=== PATIENT | female | born 1955 | race Caucasian/White ===

== ENCOUNTER 2016-08-23 15:39 | Emergency (ER) | payer MEDICARE ==
[2016-08-23] MEDS ORDERED: NS 0.9% 1000 ML* 1,000 ML IV ONE (15:58)
--- NOTE | 2016-08-23 16:30 | RAD ---
HISTORY: Seizure COMPARISONS: February 24, 2016 TECHNIQUE: Multiple contiguous axial CT scans were obtained of the head without intravenous contrast. FINDINGS: HEMORRHAGE/INFARCT: There is no hemorrhage or acute infarct. MASSES/SHIFT: There is no mass or shift. EXTRA-AXIAL SPACES: There are no extra-axial fluid collections. SULCI AND VENTRICLES: The sulci and ventricles are normal in size and position for the patient's stated age. CEREBRUM: Again noted is asymmetric volume loss of the right cerebral hemisphere with multiple areas of gyriform calcification. These are stable from the previous examination. BRAINSTEM: There are no focal parenchymal abnormalities. CEREBELLUM: There are no focal parenchymal abnormalities. VESSELS: The vessels are grossly normal. PARANASAL SINUSES: The paranasal sinuses are clear. ORBITS: The orbits are unremarkable. BONES AND SOFT TISSUE: No bone or soft tissue abnormalities are noted. OTHER: None IMPRESSION: NO ACUTE INTRACRANIAL PATHOLOGY. 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
[2016-08-23 17:24] LABS: Hematocrit 40 % (35-47); Hemoglobin 13.3 g/dl (12.0-16.0); Mean Corpuscular HGB Conc 33 g/dl (31-36); Mean Corpuscular Hemoglobin 33 pg (27-31); Mean Corpuscular Volume 99 fL (80-97); Mean Platelet Volume 8 um3 (7.4-10.4); Red Blood Count 4.06 10^6/ul (4.0-5.4); Red Cell Distribution Width 16 % (10.5-15); White Blood Count 4.2 10^3/ul (3.5-10.8)
--- NOTE | 2016-08-23 17:31 | RAD ---
HISTORY: Seizure COMPARISONS: August 31, 2015 VIEWS: 2: Frontal dual-energy and lateral views of the chest. FINDINGS: CARDIOMEDIASTINAL SILHOUETTE: The cardiomediastinal silhouette is normal. WESLEY: The wesley are normal. PLEURA: There is eventration of the right hemidiaphragm. LUNG PARENCHYMA: The lungs are clear. ABDOMEN: The upper abdomen is clear. There is no subphrenic gas. BONES AND SOFT TISSUES: No bone or soft tissue abnormalities are noted. OTHER: There is a right-sided chest port from an internal jugular approach with tip overlying the superior vena cava. IMPRESSION: NO ACTIVE CARDIOPULMONARY DISEASE.
[2016-08-23] MEDS ORDERED: LORazepam INJ* 2 MG/ML 1 ML VIAL IV PUSH ONE (17:36)
[2016-08-23 17:38] LABS: ALT 13 U/L (7-52); AST 18 U/L (13-39); Albumin 4.2 g/dL (3.2-5.2); Alkaline Phosphatase 149 U/L (34-104); Anion Gap 7 mmol/L (2-11); BUN/Creatinine Ratio 25.8 (8-20); Blood Urea Nitrogen 17 mg/dL (6-24); CO2 Carbon Dioxide 29 mmol/L (22-32); Calcium 9.3 mg/dL (8.6-10.3); Chloride 99 mmol/L (101-111); EGFR African American 117.1 (>60); Globulin 3.2 g/dL (2-4); Glucose 96 mg/dL (70-100); Magnesium 1.9 mg/dL (1.9-2.7); Potassium 4.3 mmol/L (3.5-5.0); Sodium 135 mmol/L (133-145); Total Protein 7.4 g/dL (6.4-8.9)
[2016-08-23] MEDS ORDERED: LORazepam INJ* 2 MG/ML 1 ML VIAL ONE (17:39)
[2016-08-23 18:09] LABS: Alcohol < 10 mg/dL (<10)
[2016-08-23 18:10] LABS: Urine Bacteria Absent (Absent); Urine Bilirubin Negative (Negative); Urine Glucose Negative (Negative); Urine Nitrite Negative (Negative)
[2016-08-23 18:19] LABS: Benzodiazepine Urine Screen None Detected (None Detect)
[2016-08-23 18:20] LABS: TSH (Thyroid Stimulating Horm) 4.53 mcIU/mL (0.34-5.60)
--- NOTE | 2016-08-23 18:55 | ED ---
Smitha Morgan Janilya, scribed for Mj Lozada MD on 08/23/16 at 1559 . Neurological HPI - HPI Summary HPI Summary: A 60 y/o female was BIBA to [facility] presenting w/ a sudden onset of a head injury after an episode of seizures that occurred today at [facility]. Pt was seizing when she fell backwards and hit her head, according to EMS. Per EMS, her entire left side went weak, which is baseline normal for pt after seizures. The seizure was witnessed by pt's friend, who states that the pt briefly lost consciousness. Pt is fully conscious at the ED now. There is significant PMHx of seizures. Pt takes Phenobarbital 150 mg once a day at night. - History of Current Complaint Chief Complaint: EDSeizure Stated Complaint: SEIZURE Hx Obtained From: Patient Onset/Duration: Sudden Onset, Started hours ago, Resolved Timing: Constant Onset Severity: Moderate Current Severity: Moderate Seizure Severity: Moderate Syncope Context: Witnessed, Loss of Consciousness: Yes Aggravating: Nothing Alleviating: Nothing - Allergy/Home Medications Allergies/Adverse Reactions: Allergies Allergy/AdvReac Type Severity Reaction Status Date / Time No Known Allergies Allergy Verified 01/31/16 15:09 PMH/Surg Hx/FS Hx/Imm Hx Previously Healthy: No Endocrine/Hematology History: Reports: Hx Anticoagulant Therapy, Hx Anemia, Other Endocrine/Hematological Disorders - facial port wine staining Denies: Hx Diabetes, Hx Thyroid Disease Cardiovascular History: Reports: Hx Deep Vein Thrombosis, Hx Syncope Denies: Hx Hypertension, Hx Pacemaker/ICD Respiratory History: Reports: Hx Pulmonary Embolism Denies: Hx Asthma, Hx Chronic Obstructive Pulmonary Disease (COPD) History: Denies: Hx Dialysis, Hx Renal Disease Musculoskeletal History: Reports: Hx Back Problems Sensory History: Reports: Hx Contacts or Glasses, Hx Glaucoma, Hx Vision Problem , Hx Hearing Problem Denies: Hx Hearing Aid Opthamlomology History: Reports: Hx Contacts or Glasses, Hx Glaucoma, Hx Vision Problem Neurological History: Reports: Hx Seizures, Other Neuro Impairments/Disorders - Sturge-Kern disease Denies: Hx Dementia Psychiatric History: Reports: Hx Panic Disorder - UPSETS EASILY Denies: Hx Substance Abuse - Cancer History Cancer Type, Location and Year: uterine. RADHA2010 Hx Chemotherapy: Yes - UTERINE CANCER Hx Radiation Therapy: Yes - UTERINE CANCER - Surgical History Surgery Procedure, Year, and Place: TOTAL HYSTERECTOMY. Right arm. Left knee. ARNOLD FILTER- 1.5T ONLY ( FOR MRI) Hx Anesthesia Reactions: No Infectious Disease History: No Infectious Disease History: Denies: Hx Clostridium Difficile, Hx Hepatitis, Hx Human Immunodeficiency Virus (HIV), Traveled Outside the [place] in Last 30 Days - Family History Known Family History: Negative: Cardiac Disease, Hypertension, Diabetes - Social History Alcohol Use: None Hx Substance Use: No Substance Use Type: Reports: None Hx Tobacco Use: No Smoking Status (MU): Never Smoked Tobacco Review of Systems Positive: Other - head laceration Neurological: Other - episode of seizing Positive: Weakness - left-sided All Other Systems Reviewed And Are Negative: Yes Physical Exam - Summary Physical Exam Summary: VITAL SIGNS: Reviewed. GENERAL: Patient is a well developed and nourished female who is lying comfortable in the stretcher. Patient is not in any acute respiratory distress. HEAD AND FACE: No signs of trauma. No ecchymosis, hematomas or skull depressions. No sinus tenderness. EYES: PERRLA, EOMI x 2, No injected conjunctiva, no nystagmus. No photophobia. EARS: Hearing grossly intact. Ear canals and tympanic membranes are within normal limits. MOUTH: Oropharynx within normal limits. NECK: Supple, trachea is midline, no adenopathy, no JVD, no carotid bruit, no c- spine tenderness, neck with full ROM. No meningeal signs, no Kernig's or brudzinskis signs. CHEST: Symmetric, no tenderness at palpation LUNGS: Clear to auscultation bilaterally. No wheezing or crackles. CVS: Regular rate and rhythm, S1 and S2 present, no murmurs or gallops appreciated. ABDOMEN: Soft, non-tender. No signs of distention. No rebound no guarding, and no masses palpated. Bowel sounds are normal. EXTREMITIES: FROM in all major joints, no edema, no cyanosis or clubbing. NEURO: Alert and oriented x 3. No acute neurological deficits. Speech is normal and follows commands. SKIN: Dry and warm > Port wine nevus in the rihgt side of the head and face. Triage Information Reviewed: Yes Vital Signs On Initial Exam: Initial Vitals Temp Pulse Resp BP Pulse Ox 98.9 F 91 18 141/70 97 08/23/16 15:40 08/23/16 15:40 08/23/16 15:40 08/23/16 15:40 08/23/16 15:40 Vital Signs Reviewed: Yes - Jeff Coma Scale Coma Scale Total: 15 Diagnostics - Vital Signs Vital Signs Temp Pulse Resp BP Pulse Ox 08/23/16 15:40 98.9 F 91 18 141/70 97 - Laboratory Lab Results: Lab Results 08/23/16 08/23/16 08/23/16 Range/Units 17:12 17:12 17:12 WBC 4.2 (3.5-10.8) 10^3/ul RBC 4.06 (4.0-5.4) 10^6/ul Hgb 13.3 (12.0-16.0) g/dl Hct 40 (35-47) % MCV 99 H (80-97) fL MCH 33 H (27-31) pg MCHC 33 (31-36) g/dl RDW 16 H (10.5-15) % Plt Count 206 (150-450) 10^3/ul MPV 8 (7.4-10.4) um3 Neut % (Auto) 70.8 (38-83) % Lymph % (Auto) 15.6 L (25-47) % Carver % (Auto) 12.4 H (1-9) % Eos % (Auto) 0.6 (0-6) % Baso % (Auto) 0.6 (0-2) % Absolute Neuts (auto) 3.0 (1.5-7.7) 10^3/ul Absolute Lymphs (auto) 0.7 L (1.0-4.8) 10^3/ul Absolute Monos (auto) 0.5 (0-0.8) 10^3/ul Absolute Eos (auto) 0 (0-0.6) 10^3/ul Absolute Basos (auto) 0 (0-0.2) 10^3/ul Absolute Nucleated RBC 0 10^3/ul Nucleated RBC % 0 INR (Anticoag Therapy) 1.93 H (0.89-1.11) Sodium 135 (133-145) mmol/L Potassium 4.3 (3.5-5.0) mmol/L Chloride 99 L (101-111) mmol/L Carbon Dioxide 29 (22-32) mmol/L Anion Gap 7 (2-11) mmol/L BUN 17 (6-24) mg/dL Creatinine 0.66 (0.51-0.95) mg/dL Est GFR ( Amer) 117.1 (>60) Est GFR (Non-Af Amer) 91.0 (>60) BUN/Creatinine Ratio 25.8 H (8-20) Glucose 96 (70-100) mg/dL Lactic Acid (0.5-2.0) mmol/L Calcium 9.3 (8.6-10.3) mg/dL Magnesium 1.9 (1.9-2.7) mg/dL Total Bilirubin 0.40 (0.2-1.0) mg/dL AST 18 (13-39) U/L ALT 13 (7-52) U/L Alkaline Phosphatase 149 H (34-104) U/L Total Protein 7.4 (6.4-8.9) g/dL Albumin 4.2 (3.2-5.2) g/dL Globulin 3.2 (2-4) g/dL Albumin/Globulin Ratio 1.3 (1-3) TSH 4.53 (0.34-5.60) mcIU/mL Urine Color Urine Appearance Urine pH (5-9) Ur Specific Screven (1.010-1.030) Urine Protein (Negative) Urine Ketones (Negative) Urine Blood (Negative) Urine Nitrate (Negative) Urine Bilirubin (Negative) Urine Urobilinogen (Negative) Ur Leukocyte Esterase (Negative) Urine WBC (Auto) (Absent) Urine RBC (Auto) (Absent) Ur Squamous Epith Cells (Absent) Urine Bacteria (Absent) Urine Glucose (Negative) Urine Opiates Screen (None Detect) Ur Barbiturates Screen (None Detect) Ur Phencyclidine Scrn (None Detect) Ur Amphetamines Screen (None Detect) Phenobarbital 29.3 (17-34) mcg/mL U Benzodiazepines Scrn (None Detect) Urine Cocaine Screen (None Detect) U Cannabinoids Screen (None Detect) Serum Alcohol < 10 (<10) mg/dL 08/23/16 08/23/16 08/23/16 Range/Units 17:12 17:45 17:45 WBC (3.5-10.8) 10^3/ul RBC (4.0-5.4) 10^6/ul Hgb (12.0-16.0) g/dl Hct (35-47) % MCV (80-97) fL MCH (27-31) pg MCHC (31-36) g/dl RDW (10.5-15) % Plt Count (150-450) 10^3/ul MPV (7.4-10.4) um3 Neut % (Auto) (38-83) % Lymph % (Auto) (25-47) % Carver % (Auto) (1-9) % Eos % (Auto) (0-6) % Baso % (Auto) (0-2) % Absolute Neuts (auto) (1.5-7.7) 10^3/ul Absolute Lymphs (auto) (1.0-4.8) 10^3/ul Absolute Monos (auto) (0-0.8) 10^3/ul Absolute Eos (auto) (0-0.6) 10^3/ul Absolute Basos (auto) (0-0.2) 10^3/ul Absolute Nucleated RBC 10^3/ul Nucleated RBC % INR (Anticoag Therapy) (0.89-1.11) Sodium (133-145) mmol/L Potassium (3.5-5.0) mmol/L Chloride (101-111) mmol/L Carbon Dioxide (22-32) mmol/L Anion Gap (2-11) mmol/L BUN (6-24) mg/dL Creatinine (0.51-0.95) mg/dL Est GFR ( Amer) (>60) Est GFR (Non-Af Amer) (>60) BUN/Creatinine Ratio (8-20) Glucose (70-100) mg/dL Lactic Acid 0.9 (0.5-2.0) mmol/L Calcium (8.6-10.3) mg/dL Magnesium (1.9-2.7) mg/dL Total Bilirubin (0.2-1.0) mg/dL AST (13-39) U/L ALT (7-52) U/L Alkaline Phosphatase (34-104) U/L Total Protein (6.4-8.9) g/dL Albumin (3.2-5.2) g/dL Globulin (2-4) g/dL Albumin/Globulin Ratio (1-3) TSH (0.34-5.60) mcIU/mL Urine Color Straw Urine Appearance Clear Urine pH 7.0 (5-9) Ur Specific Screven 1.008 L (1.010-1.030) Urine Protein Negative (Negative) Urine Ketones Negative (Negative) Urine Blood 1+ H (Negative) Urine Nitrate Negative (Negative) Urine Bilirubin Negative (Negative) Urine Urobilinogen Negative (Negative) Ur Leukocyte Esterase Trace H (Negative) Urine WBC (Auto) Trace(0-5/hpf) (Absent) Urine RBC (Auto) Trace(0-2/hpf) (Absent) Ur Squamous Epith Cells Present H (Absent) Urine Bacteria Absent (Absent) Urine Glucose Negative (Negative) Urine Opiates Screen None detected (None Detect) Ur Barbiturates Screen Presumptive positive H (None Detect) Ur Phencyclidine Scrn None detected (None Detect) Ur Amphetamines Screen None detected (None Detect) Phenobarbital (17-34) mcg/mL U Benzodiazepines Scrn None detected (None Detect) Urine Cocaine Screen None detected (None Detect) U Cannabinoids Screen None detected (None Detect) Serum Alcohol (<10) mg/dL Result Diagrams: 08/23/16 17:12 08/23/16 17:12 Lab Statement: Any lab studies that have been ordered have been reviewed, and results considered in the medical decision making process. - Radiology CXR Xray Interpretation: No Acute Changes - IMPRESSION: No active cardiopulmonary disease Radiology Interpretation Completed By: Radiologist - CT brain CT Interpretation: Positive (See Comments) - IMPRESSION: NO ACUTE INTRACRANIAL PATHOLOGY. 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 Pt was seizing when she fell backwards and hit her head, according to EMS. Per EMS, her entire left side went weak, which is baseline normal for pt after seizures. The seizure was witnessed by pt's friend, who states that the pt briefly lost consciousness. Pt is fully conscious at the ED now. There is significant PMHx of seizures. Pt takes Phenobarbital 150 mg once a day at night. brain CT IMPRESSION: NO ACUTE INTRACRANIAL PATHOLOGY. AGAIN NOTED IS ASYMMETRIC VOLUME LOSS OF THE RIGHT CEREBRAL HEMISPHERE WITH GYRIFORM. 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 EKG is NSR w/ 82 bpm. CXR shows no cardiopulmonary disease. At 1732: pt experienced a focal seizure. At this time, pt is in a post-ictal state. 1 mg of Adivan will be given. Blood work within normal limits, except for the following: MCV 99 H. MCH 33H. RDW 16 H. Lymph% 15.6 L. Carver% 12.4 H. Absolute Lymphs 0.7 L. chloride 99 L. BUN/creatinine ratio 25.8 H. alkaline phosphatase 149 H. Discussed pt care w/ Dr. Murrell (neuro). I was recommended to check up on phenobarbital levels. After 29.3 H levels, it was recommended to further observe the pt for the next 1-2 hours for seizures. If no more seizures, pt will be discharged home. Currently, pt is stable and resting comfortably in bed. Pt will be signed out to Dr. Meng for the next 1- 2 hours for observation. Pt will need to contact Dr. Murrell for further directions. - Diagnoses Provider Diagnoses: Seizure - Physician Notifications Discussed Care of Patient With: Dr. Murrell (neuro) at 1827: discussed pt care; recommended to assess phenobarbital levels to determine next steps in pt care. Dr. Murrell (neuro) at 1835: discussed phenobarbitla levels were 29.3; recommended further observation of pt for next 1-2 hours. If no more seizures, dx pt home. Discharge - Discharge Plan Condition: Stable Disposition: OTHER Discharge Disposition Comment: Signed out to Dr. Meng pending observation for seizures for next 1-2 hrs Referrals: Piter Thomas MD [Primary Care Provider] - The documentation as recorded by the Smitha smiley Janilya accurately reflects the service I personally performed and the decisions made by , Mj Lozada MD.
[2016-08-23 20:34] VITALS: BP 122/46
== END 2016-08-23 20:48 | disposition home or self-care (01) ==
LOC: ED 15:39
DX: S09.90XA Unspecified injury of head, initial encounter (principal); W19.XXXA Unspecified fall, initial encounter; Y92.512 Supermarket, store or market as the place of occurrence of the external cause; G40.909 Epilepsy, unspecified, not intractable, without status epilepticus; Z86.711 Personal history of pulmonary embolism; F41.0 Panic disorder [episodic paroxysmal anxiety]; Z85.42 Personal history of malignant neoplasm of other parts of uterus; Z92.21 Personal history of antineoplastic chemotherapy; Z79.01 Long term (current) use of anticoagulants; Z86.718 Personal history of other venous thrombosis and embolism
CPT/HCPCS: 36415; 70450; 71020; 80053; 80184; 80307; 80320; 81003; 81015; 83605; 83735; 84443; 85025; 85610; 87086; 93005; 96360; 96374; 99284; G0480; J2060

== ENCOUNTER 2018-02-25 19:04 | Observation (INO) | payer MEDICARE ==
[2018-02-25] MEDS ORDERED: NS 0.9% 1000 ML* 1,000 ML IV ONE (19:06)
--- NOTE | 2018-02-25 19:32 | RAD ---
EXAM: CT Head Without Intravenous Contrast EXAM DATE/TIME: 02/25/2018 7:13 PM CLINICAL HISTORY: 62 years old, female; Signs and symptoms; Altered mental status/memory loss; Additional info: Neurological changes/code perez, left facial droop TECHNIQUE: Axial computed tomography images of the head/brain without intravenous contrast. All CT scans at this facility use at least one of these dose optimization techniques: automated exposure control; mA and/or kV adjustment per patient size (includes targeted exams where dose is matched to clinical indication); or iterative reconstruction. 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 No edema. Perez-white differentiation is maintained. Ventricles: Normal. No ventriculomegaly. Bones/joints: Normal. No acute fracture. Sinuses: Normal as visualized. No acute sinusitis. Mastoid air cells: Normal as visualized. No mastoid effusion. Soft tissues: Normal. IMPRESSION: No acute intracranial abnormality. Chronic changes as described above. Aspect score of 10. To contact [facility] with a general question: Operations Center - [phone] For direct physician to physician contact: Physician Hotline - [phone] [facility] ([facility] Facility ID #[id number])
[2018-02-25 19:52] LABS: Urine Appearance Clear; Urine Blood 1+ (Negative); Urine Color Colorless; Urine Ketones Negative (Negative); Urine Protein Negative (Negative); Urine Red Blood Cell Absent (Absent); Urine Specific Gravity 1.002 (1.010-1.030); Urine Urobilinogen Negative (Negative); Urine White Blood Cell Absent (Absent)
[2018-02-25 20:09] LABS: ABS Basophils 0 10^3/ul (0-0.2); ABS Eosinophils 0.1 10^3/ul (0-0.6); ABS Lymphocytes 0.6 10^3/ul (1.0-4.8); ABS Monocytes 0.4 10^3/ul (0-0.8); ABS Neutrophils 1.7 10^3/ul (1.5-7.7); ABS Nucleated RBC 0 10^3/ul; Eosinophil % 2.1 % (0-6); Hematocrit 38 % (35-47); Hemoglobin 12.7 g/dl (12.0-16.0); Lymphocyte % 21.7 % (25-47); Mean Corpuscular HGB Conc 34 g/dl (31-36); Mean Corpuscular Hemoglobin 33 pg (27-31); Mean Corpuscular Volume 98 fL (80-97); Mean Platelet Volume 7.9 um3 (7.4-10.4); Nucleated Red Blood Cells % 0.2; Platelet Count 255 10^3/ul (150-450); Red Blood Count 3.84 10^6/ul (4.00-5.40); Red Cell Distribution Width 16 % (10.5-15); White Blood Count 2.8 10^3/ul (3.5-10.8)
--- NOTE | 2018-02-25 20:27 | ED ---
Neurological HPI - HPI Summary HPI Summary: This patient is a 62 year old F presenting to [facility] with a chief complaint of gradual onset left upper and lower extremity weakness since 1729. PMHx Sturge -Hughes syndrome. PMHx left hemiparesis, but typically only arm and in context of a seizure. Today she is experiencing L hemiparesis including leg, worse sx than ever previously experienced. Rx on Coumadin. PMHx sz inducing similar sx, but she states that she felt it coming on then, and had no warning for todays sx. She denies SUTHERLAND. Earlene white called at 1902. - History of Current Complaint Chief Complaint: EDNeurologicalDeficit Stated Complaint: LT SIDE WEAKNESS Time Seen by Provider: 02/25/18 19:06 Hx Obtained From: Patient Onset/Duration: Gradual Onset, Started hours ago, Still Present Timing: Constant Onset Severity: Moderate Current Severity: Mild Neurological Deficit Location: LUE, LLE Pain Intensity: 0 Pain Scale Used: 0-10 Numeric Character: Numbness/Tingling - numbness, Motor Weakness - LUE and LLE Aggravating: Nothing Alleviating: Nothing Associated Signs and Symptoms: Positive: Weakness - L sided motor, Numbness. Negative: Headache, Fever - Allergy/Home Medications Allergies/Adverse Reactions: Allergies Allergy/AdvReac Type Severity Reaction Status Date / Time No Known Allergies Allergy Verified 01/31/16 15:09 PMH/Surg Hx/FS Hx/Imm Hx Endocrine/Hematology History: Reports: Hx Anticoagulant Therapy, Hx Anemia, Other Endocrine/Hematological Disorders - facial port wine staining Denies: Hx Diabetes, Hx Thyroid Disease Cardiovascular History: Reports: Hx Deep Vein Thrombosis, Hx Syncope Denies: Hx Hypertension, Hx Pacemaker/ICD Respiratory History: Reports: Hx Pulmonary Embolism, Other Respiratory Problems/ Disorders - 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, hx uterine cancer Denies: Hx Asthma, Hx Chronic Obstructive Pulmonary Disease (COPD) History: Denies: Hx Dialysis, Hx Renal Disease Musculoskeletal History: Reports: Hx Back Problems Sensory History: Reports: Hx Contacts or Glasses, Hx Glaucoma, Hx Vision Problem , Hx Hearing Problem Denies: Hx Hearing Aid Opthamlomology History: Reports: Hx Contacts or Glasses, Hx Glaucoma, Hx Vision Problem Neurological History: Reports: Hx Seizures, Other Neuro Impairments/Disorders - Sturge-Hughes disease Denies: Hx Dementia Psychiatric History: Reports: Hx Panic Disorder - UPSETS EASILY Denies: Hx Substance Abuse - Cancer History Cancer Type, Location and Year: uterine. RADHA 2010 Hx Chemotherapy: Yes - UTERINE CANCER Hx Radiation Therapy: Yes - UTERINE CANCER - Surgical History Surgery Procedure, Year, and Place: TOTAL HYSTERECTOMY. Right arm. Left knee. ARNOLD FILTER- 1.5T ONLY ( FOR MRI) Hx Anesthesia Reactions: No Infectious Disease History: No Infectious Disease History: Denies: Hx Clostridium Difficile, Hx Hepatitis, Hx Human Immunodeficiency Virus (HIV), Traveled Outside the [place] in Last 30 Days - Family History Known Family History: Negative: Cardiac Disease, Hypertension, Diabetes - Social History Alcohol Use: None Hx Substance Use: No Substance Use Type: Reports: None Hx Tobacco Use: No Smoking Status (MU): Never Smoked Tobacco Review of Systems Negative: Fever Positive: no symptoms reported Positive: Decreased ROM - LUE, LLE Positive: Weakness - LLE, LUE, Numbness - LLE, LUE. Negative: Headache All Other Systems Reviewed And Are Negative: Yes Physical Exam - Summary Physical Exam Summary: Appearance: Well-appearing, Well-nourished, lying in bed comfortably Skin: Warm, dry. Large port wine stains on right side of face and about the mouth Eyes: sclera anicteric, no conjunctival pallor ENT: mucous membranes moist, pharynx appears normal Neck: Supple, nontender Respiratory: Clear to auscultation, no signs of respiratory distress Cardiovascular: Normal S1, S2. No murmurs. Normal distal pulses in tibial and radial bilaterally. Abdomen: Soft, nontender, normal active bowel sounds present Musculoskeletal: Normal, Strength/ROM Intact Neurological: NIH 5: weakness in LUE, LLE, subjective numbness. Cranial nerves appear grossly intact, no facial weakness. No field cut. No ataxia. DTRs nl at knees Psychiatric: affect is normal, does not appear anxious or depressed Triage Information Reviewed: Yes Vital Signs On Initial Exam: Initial Vitals Temp Pulse Resp BP Pulse Ox 98 F 79 19 135/92 100 02/25/18 19:20 02/25/18 19:20 02/25/18 19:20 02/25/18 19:20 02/25/18 19:20 Vital Signs Reviewed: Yes - [place] Coma Scale Best Eye Response: 4 - Spontaneous Best Motor Response: 6 - Obeys Commands Best Verbal Response: 5 - Oriented Coma Scale Total: 15 Diagnostics - Vital Signs Vital Signs Temp Pulse Resp BP Pulse Ox 02/25/18 20:21 98 02/25/18 19:22 80 25 135/92 100 02/25/18 19:20 98 F 79 19 135/92 99 - Laboratory Lab Results: Lab Results 02/25/18 02/25/18 Range/Units 19:36 20:01 WBC 2.8 L (3.5-10.8) 10^3/ul RBC 3.84 L (4.00-5.40) 10^6/ul Hgb 12.7 (12.0-16.0) g/dl Hct 38 (35-47) % MCV 98 H (80-97) fL MCH 33 H (27-31) pg MCHC 34 (31-36) g/dl RDW 16 H (10.5-15) % Plt Count 255 (150-450) 10^3/ul MPV 7.9 (7.4-10.4) um3 Neut % (Auto) 61.3 (38-83) % Lymph % (Auto) 21.7 L (25-47) % Harnett % (Auto) 13.6 H (0-7) % Eos % (Auto) 2.1 (0-6) % Baso % (Auto) 1.3 (0-2) % Absolute Neuts (auto) 1.7 (1.5-7.7) 10^3/ul Absolute Lymphs (auto) 0.6 L (1.0-4.8) 10^3/ul Absolute Monos (auto) 0.4 (0-0.8) 10^3/ul Absolute Eos (auto) 0.1 (0-0.6) 10^3/ul Absolute Basos (auto) 0 (0-0.2) 10^3/ul Absolute Nucleated RBC 0 10^3/ul Nucleated RBC % 0.2 Urine Color Colorless Urine Appearance Clear Urine pH 7.0 (5-9) Ur Specific [place] 1.002 L (1.010-1.030) Urine Protein Negative (Negative) Urine Ketones Negative (Negative) Urine Blood 1+ A (Negative) Urine Nitrate Negative (Negative) Urine Bilirubin Negative (Negative) Urine Urobilinogen Negative (Negative) Ur Leukocyte Esterase Negative (Negative) Urine WBC (Auto) Absent (Absent) Urine RBC (Auto) Absent (Absent) Ur Squamous Epith Cells Present A (Absent) Urine Bacteria Absent (Absent) Urine Glucose Negative (Negative) Result Diagrams: 02/25/18 20:01 02/25/18 20:01 Lab Statement: Any lab studies that have been ordered have been reviewed, and results considered in the medical decision making process. - Radiology CXR Xray Interpretation: No Acute Changes Radiology Interpretation Completed By: ED Physician - No acute disease. Pending official imaging report. - CT Brain CT Interpretation: No Acute Changes CT Interpretation Completed By: Radiologist - This CT does not show acute ischemia. Dr. Adams has reviewed this report. - EKG 2002 Cardiac Rate: NL - 80 EKG Rhythm: Sinus Rhythm ST Segment: Normal Ectopy: None EKG Interpretation: No STEMI. nl EKG. NIH Scale - NIH Scale Level of Consciousness: Alert/Keenly Responsive Ask Patient the Month and His/Her Age: Both Correct Ask Pt to Open/Close Eyes and Public Services Assistant/Release Non-Paretic Hand: Both Correctly Best Gaze (Only Horizontal Eye Movement): Normal Visual Field Testing: No Visual Loss Facial Paresis-Pt to Smile & Close Eyes or Grimace Symmetry: Normal/Symmetrical Motor Function - Right Arm: No Drift-Holds 10 Seconds Motor Function - Left Arm: Effort Against [place] Motor Function - Right Leg: No Drift-Holds 10 Seconds Motor Function - Left Leg: Effort Against [place] Limb Ataxia-Must be out of Proportion to Weakness Present: Absent Sensory (Use Pinprick to Test Arms/Legs/Trunk/Face): Pinprick Less on Affected Best Language (Describe Picture, Name Items): No Aphasia Dysarthria (Read Several Words): Normal Extinction and Inattention: No Abnormality Total Score: 5 Course/Dx - Course Course Of Treatment: A 62-year-old F presents to the ED with a CC of FND since 1729. (+) LUE, LLE hemiparesis and numbness. (-) Right sided weakness, numbness , SUTHERLAND. Sturge-Hughes syndrome, PMHx sz causing similar sx, but never LE, and she "had a warning" when those sx were about to onset, and none today. A CT brain was (-). A CTA head/neck reveals __. A CXR was (-). An EKG reveals NSR at 80 BPM with no STEMI. In the ED course, pt was given nl saline. Pt labs show low WBC, low RBC, high MCV, high MCH, high RDW, low lymph %, high mono %, low abs lymphs, low urine specific gravity, urine blood, urine epithelial cells, high INR, high APTT, high BUN/creat ratio, high glucose, and high alkaline phosphotase. - Diagnoses Provider Diagnoses: Left hemiparesis - Physician Notifications Discussed Care Of Patient With: Aime Franklin Time Discussed With Above Provider: 19:50 Instructed by Provider To: Other - No TPA due to strong PMHx of Sturge-Hughes. Recommends CTA to r/o large vessel occlusion. - Critical Care Time Critical Care Time: 30-74 min - Acute neurological syndrome suggestive of stroke , consultation with neurologist re: TPA or other re perfusion strategies, complicated patient with precedin neurologic co morbidity Discharge - Sign-Out/Discharge Documenting (check all that apply): Patient Departure - discharge - Discharge Plan Condition: Stable Disposition: ADMITTED TO [facility] - Billing Disposition and Condition Condition: STABLE Disposition: Admitted to [facility] - Attestation Statements Document Initiated by Scribe: Yes Documenting Scribe: Ta Joy Provider For Whom Scribe is Documenting (Include Credential): Dr. Javier Adams MD Scribe Attestation: Eddie, Ta Joy scribed for Dr. Javier Adams MD on 02/26/18 at 1253. Scribe Documentation Reviewed: Yes Provider Attestation: The documentation as recorded by the Ta smiley accurately reflects the service I personally performed and the decisions made by me, Dr. Javier Adams MD Consult Consult: [id number] Dr. Hester: accepts admission.
[2018-02-25 20:38] LABS: EGFR Non-African American 85.9 (>60)
[2018-02-25 20:57] LABS: INR 3.5 (0.77-1.02)
[2018-02-25] MEDS ORDERED: Iohexol 350* (CONTRAST) 500 ML MDV IV ONE (21:04)
--- NOTE | 2018-02-25 22:20 | ED ---
Progress - Progress Note Progress Note: This pt was signed out by Dr. Adams at shift change, pending disposition, awaiting CTA head/neck and possible admission if CTA is negative. CTA Head, as read by radiologist IMPRESSION: 1. No acute occlusion. 2. Anatomical variants as described above. 3. Dilatation measuring 3 mm at the bifurcation of M1 segment of right middle cerebral artery which may represent a small aneurysm versus infundibulum of a vessel. CTA Neck, as read by radiologist IMPRESSION: 1. No stenosis of the neck vessels. 2. The right vertebral artery is small in caliber but remains patent and likely anatomical variant. 3. Other anatomical variants as described above. 4. Right periorbital soft tissue edema/soft tissue thickening which may be a sequel of Sturge-Hughes. Clinical correlation. Dr. Napier has reviewed these reports. Course/Dx - Course Course Of Treatment: Pt was signed out by Dr. Adams pending CTA Head and Neck. Head CTA shows 1. No acute occlusion. 2. Anatomical variants as described above. 3. Dilatation measuring 3 mm at the bifurcation of M1 segment of right middle cerebral artery which may represent a small aneurysm versus infundibulum of a vessel. Neck CTA shows 1. No stenosis of the neck vessels. 2. The right vertebral artery is small in caliber but remains patent and likely anatomical variant. 3. Other anatomical variants as described above. 4. Right periorbital soft tissue edema/soft tissue thickening which may be a sequel of Sturge-Hughes. Clinical correlation. Per Dr. Adams since CTA head and neck are negative pt will be admitted to Dr. Hester, hospitalist. - Diagnoses Provider Diagnoses: Left hemiparesis Discharge - Sign-Out/Discharge Documenting (check all that apply): Patient Departure - Admit to [facility], Receiving Sign-Out Receiving patient FROM: Javier Adams - Discharge Plan Condition: Stable Disposition: ADMITTED TO [facility] - Attestation Statements Document Initiated by Scribe: Yes Documenting Scribe: Alma Betts Provider For Whom Jaun is Documenting (Include Credential): Rosy Napier MD Scribe Attestation: Alma Morgan, scribed for Rosy Napier MD on 02/26/18 at 0225.
--- NOTE | 2018-02-26 01:07 | RAD ---
EXAM: CT Angiography Head With Intravenous Contrast EXAM DATE/TIME: 02/25/2018 11:43 PM CLINICAL HISTORY: 62 years old, female; Signs and symptoms; Paralysis, transient of limb; Additional info: Left hemiparesis, ? lvo TECHNIQUE: Axial computed tomographic angiography images of the head with intravenous contrast using CT angiography protocol. All CT scans at this facility use at least one of these dose optimization techniques: automated exposure control; mA and/or kV adjustment per patient size (includes targeted exams where dose is matched to clinical indication); or iterative reconstruction. MIP reconstructed images were created and reviewed. CONTRAST: 80 ml of OMNIPAQUE 350 administered intravenously. COMPARISON: BRAIN WO CT BRAIN WO 02/25/2018 7:12 PM FINDINGS: Right internal carotid artery: Unremarkable. Intracranial segment is patent with no significant stenosis. No aneurysm. Right anterior cerebral artery: Atrophy of the right cerebral hemisphere with prominent gyral calcifications consistent Sturge-Hughes syndrome. The right cerebral artery has origin and small in caliber. Right middle cerebral artery: 3 mm dilatation at the bifurcation of right M1 segment of middle cerebral artery which may represent a small aneurysm versus infundibulum of a vessel. Right posterior cerebral artery: Unremarkable. No occlusion or significant stenosis. No aneurysm. Right vertebral artery: Unremarkable. No occlusion or significant stenosis. No aneurysm. Left internal carotid artery: Unremarkable. Intracranial segment is patent with no significant stenosis. No aneurysm. Left anterior cerebral artery: Unremarkable. No occlusion or significant stenosis. No aneurysm. Left middle cerebral artery: Unremarkable. No occlusion or significant stenosis. No aneurysm. Left posterior cerebral artery: origin of the left posterior cerebral artery. Left vertebral artery: Unremarkable. No occlusion or significant stenosis. No aneurysm. Basilar artery: Unremarkable. No occlusion or significant stenosis. No aneurysm. IMPRESSION: 1. No acute occlusion. 2. Anatomical variants as described above. 3. Dilatation measuring 3 mm at the bifurcation of M1 segment of right middle cerebral artery which may represent a small aneurysm versus infundibulum of a vessel. EXAM: CT Angiography Neck With Intravenous Contrast EXAM DATE/TIME: 02/25/2018 11:43 PM CLINICAL HISTORY: 62 years old, female; Signs and symptoms; Paralysis, transient of limb; Additional info: Left hemiparesis, ? lvo TECHNIQUE: Axial computed tomographic angiography images of the neck with intravenous contrast using CT angiography protocol. All CT scans at this facility use at least one of these dose optimization techniques: automated exposure control; mA and/or kV adjustment per patient size (includes targeted exams where dose is matched to clinical indication); or iterative reconstruction. MIP reconstructed images were created and reviewed. CONTRAST: 80 ml of OMNIPAQUE 350 administered intravenously. COMPARISON: BRAIN WO CT BRAIN WO 02/25/2018 7:12 PM FINDINGS: VASCULATURE: Right common carotid artery: Bovine origin of the common carotid arteries which is a anatomical variant. Right internal carotid artery: There is right periorbital edema/soft tissue thickness and asymmetry of the soft tissues in the right premaxillary space. Right external carotid artery: Normal. No occlusion or significant stenosis. Right vertebral artery: The right vertebral artery is extremely small in caliber but remains patent and likely a anatomical variant. Left common carotid artery: Normal. No significant stenosis. No dissection or occlusion. Left internal carotid artery: Normal. Extracranial segment is patent with no significant stenosis. No dissection or occlusion. Left external carotid artery: Normal. No occlusion or significant stenosis. Left vertebral artery: Normal. No significant stenosis. No dissection or occlusion. NECK: Bones/joints: No acute fracture. IMPRESSION: 1. No stenosis of the neck vessels. 2. The right vertebral artery is small in caliber but remains patent and likely anatomical variant. 3. Other anatomical variants as described above. 4. Right periorbital soft tissue edema/soft tissue thickening which may be a sequel of Sturge-Hughes. Clinical correlation. COMMENT: Degree of carotid stenosis was determined using NASCET or SRU criteria. Mild: <50% stenosis. Moderate: 50-69% stenosis. Severe: 70-94% stenosis. Near occlusion: 95-99% stenosis. Occluded: 100% stenosis. To contact [facility] with a general question: [facility] - [phone] For direct physician to physician contact: Physician Hotline - [phone] [facility] ([facility] Facility ID #[id number])
[2018-02-26] MEDS ORDERED: Warfarin TAB(*) 5 MG PO ONE (01:20)
[2018-02-26] MEDS ORDERED: OPTH RIGHT EYE ONE (01:21)
[2018-02-26] MEDS ORDERED: PILOCARPINE 7.5 MG PO ONE (01:21)
[2018-02-26] MEDS ORDERED: PILOCARPINE 4% RIGHT EYE ONE (01:21)
[2018-02-26] MEDS ORDERED: PHENobarbital TAB(*) 100 MG PO ONE (01:22)
[2018-02-26] MEDS ORDERED: Brimonidine P 0.1%(NF) 1 DROP BTL RIGHT EYE ONE (01:23)
[2018-02-26] MEDS ORDERED: LoraTADine TAB(NF) 10 MG TAB (AUTOSUB to CETIRIZINE) PO ONE (01:25)
[2018-02-26] MEDS ORDERED: Al Hydrox/Mg Hydrox/Simet LIQ* 30 ML UDC PO PRN (01:31)
[2018-02-26] MEDS ORDERED: Cetirizine* 10 MG TAB PO ONE (03:00)
[2018-02-26] MEDS: Acetaminophen TAB* 325 MG PO PRN ×2 (03:09→08:44)
[2018-02-26 07:38] VITALS: BP 106/66
--- NOTE | 2018-02-26 07:38 | RAD ---
HISTORY: Neurological Changes/Code Perez COMPARISONS: August 23, 2016 VIEWS: 1: frontal AP view of the chest at 7:28 PM FINDINGS: LINES AND TUBES: A right-sided chest port is noted with the tip overlying the cavoatrial junction.. CARDIOMEDIASTINAL SILHOUETTE: The cardiomediastinal silhouette is normal for portable technique. PLEURA: The costophrenic angles are sharp. No pleural abnormalities are noted. LUNG PARENCHYMA: The lung volumes are low. The lungs are clear accounting for the phase of respiration. ABDOMEN: The upper abdomen is clear. There is no subphrenic gas. BONES AND SOFT TISSUES: No bone or soft tissue abnormalities are noted. IMPRESSION: NO ACTIVE CARDIOPULMONARY DISEASE. R0
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
[2018-02-26] MEDS: PILOCARPINE 4% RIGHT EYE SCH ×2 (08:36→12:18)
[2018-02-26] MEDS: PILOCARPINE 7.5 MG PO SCH ×2 (08:37→12:19)
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
[2018-02-26] MEDS ORDERED: Dorzolamide/Timolol OPTH (NF) 10 ML BOT BOTH EYES SCH (09:00)
[2018-02-26] MEDS ORDERED: Brimonidine P 0.15%(NF) OPH SOL 5 ML BTL RIGHT EYE SCH (09:00)
--- NOTE | 2018-02-26 12:26 | RAD ---
HISTORY: Clinical systems suspicious for transient ischemic attack COMPARISONS: CT of the brain dated February 25, 2018 that shows coarse calcification involving much of the cortex of the right hemisphere TECHNIQUE: The following sequences were obtained of the head: Sagittal T1-weighted images, axial T2-weighted images, axial FLAIR images, axial susceptibility weighted images, axial T1-weighted images. Additionally, axial diffusion-weighted images were obtained with calculated apparent diffusion coefficients.. FINDINGS: HEMORRHAGE/INFARCT: There is no hemorrhage or acute infarct. MASSES/SHIFT: There is no mass or shift. EXTRA-AXIAL SPACES/MENINGES: There are no extra-axial fluid collections. SULCI AND VENTRICLES: There are involutional changes of the right hemisphere corresponding to the recent CT of the brain as well as the CT of the brain dated February 24, 2016. Reduced signal at the cortex involving the right frontal, temporal and parietal lobes as well as the occipital lobe are consistent with the calcification seen on the previous CT of the brain. There is slight stable asymmetry of the right ventricle compared to the left, also consistent with the overall involutional appearance. CEREBRUM: MR findings are consistent with involutional changes of the right hemisphere and calcification of the cortices. Otherwise the shelton-white matter differentiation is adequately maintained. There is no new focal or suspicious mass. BRAINSTEM: There are no focal parenchymal abnormalities. CEREBELLUM: There are no focal parenchymal abnormalities. The cerebellar tonsils are normal in size and position. SELLA: The sella is normal. PINEAL: The pineal region is clear. CP ANGLE/TEMPORAL BONES: The labyrinthine structures are grossly normal. VESSELS: Normal flow-voids are noted within the visualized vertebral vasculature. DIFFUSION ABNORMALITIES: There are no diffusion abnormalities. PARANASAL SINUSES/MASTOIDS: There is fluid signal in the dependent right mastoid air cells. There is mild mucosal thickening of the right maxillary sinus and to a lesser extent the right ethmoid air cells. ORBITS: The orbits are unremarkable. BONES AND SOFT TISSUE: No bone or soft tissue abnormalities are noted. IMPRESSION: 1. CHRONIC INVOLUTIONAL CHANGES INVOLVING THE RIGHT HEMISPHERE SIMILAR TO THE CT OF THE BRAIN GOING BACK TO FEBRUARY 24, 2016. 2. NO DEFINITE EVIDENCE OF AN ACUTE FOCAL OR TERRITORIAL INFARCTION. 3. POTENTIAL PARTIAL MASTOID AIR CELL EFFUSION ON THE RIGHT.
--- NOTE | 2018-02-26 13:09 | PN ---
Correspondence/Letterhead Correspondence: MRI brain reviewed. No evidence of a new stroke. No further neurological workup. Phenobarbital level ordered which can be followed up as outpatient once drawn.
[2018-02-26] MEDS ORDERED: Atorvastatin* 40 MG TAB PO SCH (17:00)
[2018-02-26] MEDS ORDERED: PHENobarbital TAB(*) 100 MG PO SCH (21:00)
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
== END 2018-02-26 14:39 | disposition home or self-care (01) ==
LOC: ED 19:04 → MEDTELE 02-26 01:31
PROVIDERS: ADMIT Internal Medicine; ATTEND Internal Medicine
DX: Q85.8 Other phakomatoses, not elsewhere classified (principal); R20.0 Anesthesia of skin; R53.1 Weakness; G40.909 Epilepsy, unspecified, not intractable, without status epilepticus; Z85.42 Personal history of malignant neoplasm of other parts of uterus; H54.7 Unspecified visual loss; Z86.711 Personal history of pulmonary embolism; Z79.01 Long term (current) use of anticoagulants; Z90.710 Acquired absence of both cervix and uterus; Z86.718 Personal history of other venous thrombosis and embolism
CPT/HCPCS: 36415; 70450; 70496; 70498; 70551; 71045; 80053; 80061; 80184; 81003; 81015; 83605; 84484; 85025; 85610; 85730; 93005; 99285; A9270-GY; G0378; Q9967

== ENCOUNTER 2018-03-25 10:12 | Emergency (ER) | payer MEDICARE ==
--- NOTE | 2018-03-25 10:31 | ED ---
Neurological HPI - HPI Summary HPI Summary: A 62 year old female brought in by ambulance presents to the ED c/o a mechanical fall the morning of 03/25/2018. The patient was in [employer] when she tripped and fell. Per EMS she had a seizure that was witnessed in the ambulance. She rates her pain as 4/10. The patient has a Hx of seizures. She currently feels left sided weakness and numbness and also c/o dizziness. She states that the left sided weakness and numbness is normal for her post seizure. She denies Syncope, Fever, Chills, Erythema (eyes), Sore throat, Chest pain, Shortness of Breath, Cough, Abdominal pain, Vomiting, Nausea, Dysuria, Hematuria, Myalgia, Edema and Rash. She also has a Hx of chronic right sacral pain. - History of Current Complaint Chief Complaint: EDSeizure Stated Complaint: FALL/SEIZURE Time Seen by Provider: 03/25/18 10:23 Hx Obtained From: Patient, EMS Onset/Duration: Sudden Onset, Started minutes ago Onset Severity: Moderate Current Severity: Moderate Seizure Severity: Moderate Pain Intensity: 4 Pain Scale Used: 0-10 Numeric Associated Signs and Symptoms: Positive: Dizziness - Additional Pertinent History Primary Care Physician: DACIA - Allergy/Home Medications Allergies/Adverse Reactions: Allergies Allergy/AdvReac Type Severity Reaction Status Date / Time No Known Allergies Allergy Verified 03/25/18 10:24 PMH/Surg Hx/FS Hx/Imm Hx Endocrine/Hematology History: Reports: Hx Anticoagulant Therapy, Hx Anemia, Other Endocrine/Hematological Disorders - facial port wine staining Denies: Hx Diabetes, Hx Thyroid Disease Cardiovascular History: Reports: Hx Deep Vein Thrombosis, Hx Syncope Denies: Hx Hypertension, Hx Pacemaker/ICD Respiratory History: Reports: Hx Pulmonary Embolism, Other Respiratory Problems/ Disorders - 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, hx uterine cancer Denies: Hx Asthma, Hx Chronic Obstructive Pulmonary Disease (COPD) History: Denies: Hx Dialysis, Hx Renal Disease Musculoskeletal History: Reports: Hx Back Problems, Other Musculoskeletal History - left sided weakness Sensory History: Reports: Hx Contacts or Glasses, Hx Glaucoma, Hx Vision Problem , Hx Hearing Problem Denies: Hx Hearing Aid Opthamlomology History: Reports: Hx Contacts or Glasses, Hx Glaucoma, Hx Vision Problem Neurological History: Reports: Hx Seizures, Other Neuro Impairments/Disorders - Sturge-Hughes disease Denies: Hx Dementia Psychiatric History: Reports: Hx Panic Disorder - UPSETS EASILY Denies: Hx Substance Abuse - Cancer History Cancer Type, Location and Year: uterine. RADHA 2010 Hx Chemotherapy: Yes - UTERINE CANCER Hx Radiation Therapy: Yes - UTERINE CANCER - Surgical History Surgery Procedure, Year, and Place: TOTAL HYSTERECTOMY. Right arm. Left knee. ARNOLD FILTER- 1.5T ONLY ( FOR MRI) Hx Anesthesia Reactions: No Infectious Disease History: No Infectious Disease History: Denies: Hx Clostridium Difficile, Hx Hepatitis, Hx Human Immunodeficiency Virus (HIV), Traveled Outside the [place] in Last 30 Days - Family History Known Family History: Negative: Cardiac Disease, Hypertension, Diabetes - Social History Alcohol Use: None Hx Substance Use: No Substance Use Type: Reports: None Hx Tobacco Use: No Smoking Status (MU): Never Smoked Tobacco Review of Systems Negative: Fever, Chills Negative: Erythema Negative: Sore Throat Negative: Chest Pain Negative: Shortness Of Breath, Cough Negative: Abdominal Pain, Vomiting, Nausea Negative: dysuria, hematuria Negative: Myalgia, Edema Negative: Rash Neurological: Other - Positive: dizziness Positive: Numbness - left sided. Negative: Syncope All Other Systems Reviewed And Are Negative: Yes Physical Exam - Summary Physical Exam Summary: Constitutional: Well-developed, Well-nourished, Alert. (-) Distressed Skin: Hyperpigmentaion on left more than right. HENT: Normocephalic; Atraumatic Eyes: Conjunctiva normal Neck: Musculoskeletal ROM normal neck. (-) JVD, (-) Stridor, (-) Tracheal deviation Cardio: Rhythm regular, rate normal, Heart sounds normal; Intact distal pulses; The pedal pulses are 2+ and symmetric. Radial pulses are 2+ and symmetric. (-) Murmur Pulmonary/Chest wall: Effort normal. (-) Respiratory distress, (-) Wheezes, (-) Rales Abd: Soft, (-) epigastric tenderness, (-) Distension, (-) Guarding, (-) Rebound Musculoskeletal: (-) Edema Lymph: (-) Cervical adenopathy Neuro: Alert, Oriented x3, inability to extend fingers on left hand. Psych: Mood and affect Normal GCS: 15 Triage Information Reviewed: Yes Vital Signs On Initial Exam: Initial Vitals Temp Pulse Resp BP Pulse Ox 97.6 F 82 18 148/93 97 03/25/18 10:21 03/25/18 10:21 03/25/18 10:21 03/25/18 10:21 03/25/18 10:21 Vital Signs Reviewed: Yes Diagnostics - Vital Signs Vital Signs Temp Pulse Resp BP Pulse Ox 03/25/18 10:21 97.6 F 82 18 148/93 97 - Laboratory Result Diagrams: 03/25/18 10:46 03/25/18 10:46 Lab Statement: Any lab studies that have been ordered have been reviewed, and results considered in the medical decision making process. - CT Brain CT Interpretation Completed By: Radiologist - #. No acute intracranial process evident. #. 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 ED physician reviewed this report. - EKG 10:27 Cardiac Rate: NL - 81 bpm EKG Rhythm: Sinus Rhythm Summary of EKG Findings: no STEMI Re-Evaluation - Re-Evaluation First Eval Re-Evaluation Time: 11:15 Change: Unchanged Comment: Left sided weakness and numbness. Patient could not extend her left fingers fully. Pt claims this is normal for her post seizure. Second Eval Re-Evaluation Time: 11:50 Change: Improved Comment: numbness resolved Course/Dx - Course Course Of Treatment: A 62 year old female brought in by ambulance presents to the ED c/o a mechanical fall the morning of 03/25/2018. The patient was in juda[place] when she tripped and fell. Per EMS she had a seizure that was witnessed in the ambulance. She rates her pain as 4/10. The patient has a Hx of seizures. She currently feels left sided weakness and numbness and also c/o dizziness. She states that the left sided weakness and numbness is normal for her post seizure. She denies Syncope, Fever, Chills, Erythema (eyes), Sore throat, Chest pain, Shortness of Breath, Cough, Abdominal pain, Vomiting, Nausea, Dysuria, Hematuria, Myalgia, Edema and Rash. She also has a Hx of chronic right sacral pain. I reviewed her chart from 02/26/2018 where she was also seen for left sided numbness. Today she has left sided numbness post seizures. 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 Her PE revealed skin hyperpigmentation and her inability to extend fingers on her left hand. However, the patient revealed that this is normal for her post seizure. Her EKG showed NSR at 81bpm. Her Brain CT impression was:#. No acute intracranial process evident. #. Chronic findings of RIGHT cerebral hemisphere volume loss with extensive cortical. calcification most suggestive of Sturge-Hughes syndrome. After speaking to Dr. Carrasco, we agreed to discharge the patient and follow up with Dr. Carrasco. I will help set the patient up with an appointment. 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 Her presentation is usual post sz. He wants the patient to follow up with him. Discharge - Sign-Out/Discharge Documenting (check all that apply): Patient Departure - DC - Discharge Plan Condition: Stable Disposition: HOME Patient Education Materials: Recurrent Seizures in Adults (ED) Referrals: Piter Thomas MD [Primary Care Provider] - 3 Days Akin Carrasco MD [Medical Doctor] - Additional Instructions: RETURN TO THE EMERGENCY DEPARTMENT FOR CHANGING OR WORSENING SYMPTOMS - Attestation Statements Document Initiated by Scribe: Yes Documenting Scribe: Kurt Yee Provider For Whom Scribe is Documenting (Include Credential): Beto Lovell MD Scribe Attestation: Kurt Morgan, scribed for Beto Lovell MD on 03/25/18 at 1215.
[2018-03-25 10:57] LABS: ABS Basophils 0 10^3/ul (0-0.2); ABS Eosinophils 0 10^3/ul (0-0.6); ABS Lymphocytes 0.6 10^3/ul (1.0-4.8); ABS Monocytes 0.4 10^3/ul (0-0.8); ABS Nucleated RBC 0 10^3/ul; Eosinophil % 1.5 % (0-6); Hematocrit 39 % (35-47); Hemoglobin 12.7 g/dl (12.0-16.0); Lymphocyte % 18.2 % (25-47); Mean Corpuscular HGB Conc 33 g/dl (31-36); Mean Corpuscular Hemoglobin 33 pg (27-31); Mean Corpuscular Volume 99 fL (80-97); Mean Platelet Volume 8.2 fL (7.4-10.4); Nucleated Red Blood Cells % 0.1; Platelet Count 198 10^3/ul (150-450); Red Blood Count 3.92 10^6/ul (4.00-5.40); Red Cell Distribution Width 16 % (10.5-15); White Blood Count 3.1 10^3/ul (3.5-10.8)
[2018-03-25 11:06] LABS: INR 1.99 (0.77-1.02)
[2018-03-25 11:23] LABS: Urine Appearance Clear; Urine Blood Negative (Negative); Urine Color Yellow; Urine Ketones Negative (Negative); Urine Protein Negative (Negative); Urine Red Blood Cell Trace(0-2/hpf) (Absent); Urine Specific Gravity 1.018 (1.010-1.030); Urine Urobilinogen Negative (Negative); Urine White Blood Cell Trace(0-5/hpf) (Absent)
[2018-03-25 12:23] VITALS: BP 108/66
== END 2018-03-25 13:32 | disposition home or self-care (01) ==
LOC: ED 10:12
DX: G40.909 Epilepsy, unspecified, not intractable, without status epilepticus (principal); Z79.01 Long term (current) use of anticoagulants; Z86.718 Personal history of other venous thrombosis and embolism; Z86.711 Personal history of pulmonary embolism; W01.0XXA Fall on same level from slipping, tripping and stumbling without subsequent striking against object, initial encounter; Y92.22 Religious institution as the place of occurrence of the external cause; M53.3 Sacrococcygeal disorders, not elsewhere classified; G89.29 Other chronic pain
CPT/HCPCS: 36415; 70450; 80053; 80184; 81003; 81015; 83605; 83735; 85025; 85610; 87086; 93005; 96374; 99283; J1642

== ENCOUNTER 2018-05-06 10:56 | Emergency (ER) | payer MEDICARE ==
--- NOTE | 2018-05-06 11:18 | ED ---
Seizure - HPI Summary HPI Summary: Patient is a 62-year-old female with history of uterine cancer, Sturge-Hughes syndrome, and seizures presenting to the ED after a witnessed seizure approximately 1 hour TIPPLE BOSS. Patient states she was in a friend's car when the friend noticed she became unresponsive and "stiff." Last known seizure 1 month ago. She states she has approximately 4-6 per year. She denies any pain or concerns at this time. She states she did fall on her way into [employer], but denies hitting her head and denies headache. She is sent from [address] [place] [address] urgent care. She was a and O 1 at the urgent care, however on arrival she is a and O 3. Mild weakness to the left side, however she states this is normal for her baseline and worsens post seizures. She takes phenobarbital 150 mg once daily 20 years. She has seen Dr[address] Crockett in the past, however no medication changes were initiated. Denies numbness or tingling. - History Of Current Complaint Chief Complaint: EDSeizure Time Seen by Provider: 05/06/18 11:07 Hx Obtained From: Patient Onset/Duration: Sudden Onset Severity Of Seizure: Status Epilepticus Location Of Seizure: All Extremities Character: Generalized Clonic-Tonic Aggravating Factor(s): Nothing Alleviating Factor(s): Spontaneous Resolution Associated Signs And Symptoms: Negative Related History: Similar Episode/Dx As - previous seizure activity - Risk Factors SAH Risk Factors: Negative Meningitis Risk Factors: Negative SDH Risk Factor: Seizures - Allergies/Home Medications Allergies/Adverse Reactions: Allergies Allergy/AdvReac Type Severity Reaction Status Date / Time No Known Allergies Allergy Verified 05/06/18 11:02 PMH/Surg Hx/FS Hx/Imm Hx Previously Healthy: Yes Endocrine/Hematology History: Reports: Hx Anticoagulant Therapy, Hx Anemia, Other Endocrine/Hematological Disorders - facial port wine staining Denies: Hx Diabetes, Hx Thyroid Disease Cardiovascular History: Reports: Hx Deep Vein Thrombosis, Hx Syncope Denies: Hx Hypertension, Hx Pacemaker/ICD Respiratory History: Reports: Hx Pulmonary Embolism, Other Respiratory Problems/ Disorders - 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, hx uterine cancer Denies: Hx Asthma, Hx Chronic Obstructive Pulmonary Disease (COPD) History: Denies: Hx Dialysis, Hx Renal Disease Musculoskeletal History: Reports: Hx Back Problems, Other Musculoskeletal History - left sided weakness Denies: Hx Osteoporosis Sensory History: Reports: Hx Contacts or Glasses, Hx Glaucoma, Hx Vision Problem , Hx Hearing Problem Denies: Hx Hearing Aid Opthamlomology History: Reports: Hx Contacts or Glasses, Hx Glaucoma, Hx Vision Problem Neurological History: Reports: Hx Seizures, Other Neuro Impairments/Disorders - Sturge-Hughes disease Denies: Hx Dementia Psychiatric History: Reports: Hx Panic Disorder - UPSETS EASILY Denies: Hx Substance Abuse - Cancer History Cancer Type, Location and Year: uterine. RADHA 2010 Hx Chemotherapy: Yes - UTERINE CANCER Hx Radiation Therapy: Yes - UTERINE CANCER - Surgical History Surgery Procedure, Year, and Place: TOTAL HYSTERECTOMY. Right arm. Left knee. ARNOLD FILTER- 1.5T ONLY ( FOR MRI) Hx Anesthesia Reactions: No - Immunization History Hx Pertussis Vaccination: No Immunizations Up to Date: Yes Infectious Disease History: No Infectious Disease History: Denies: Hx Clostridium Difficile, Hx Hepatitis, Hx Human Immunodeficiency Virus (HIV), Traveled Outside the [place] in Last 30 Days - Family History Known Family History: Negative: Cardiac Disease, Hypertension, Diabetes - Social History Occupation: Unemployed Lives: Alone Alcohol Use: None Hx Substance Use: No Substance Use Type: Reports: None Hx Tobacco Use: No Smoking Status (MU): Never Smoked Tobacco Review of Systems Negative: Fever, Chills, Fatigue, Skin Diaphoresis Eyes: Other - 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 Negative: burning, discharge, incontinence, urgency Musculoskeletal: Negative Negative: Rash, Bruising Neurological: Negative Negative: Headache, Weakness, Paresthesia, Numbness, Syncope, Slurred Speech Negative: Anxious, Depressed All Other Systems Reviewed And Are Negative: Yes Physical Exam Triage Information Reviewed: Yes Vital Signs On Initial Exam: Initial Vitals Temp Pulse Resp BP Pulse Ox 97.9 F 84 16 147/89 97 05/06/18 10:57 05/06/18 10:57 05/06/18 10:57 05/06/18 10:57 05/06/18 10:57 Vital Signs Reviewed: Yes Appearance: Positive: No Pain Distress, Well-Nourished Skin: Positive: Warm, Skin Color Reflects Adequate Perfusion, Other - hyperpigmentation Head/Face: Positive: Normal Head/Face Inspection Eyes: Positive: Other: - erythematous R eye - blind at baseline ENT: Positive: Pharynx normal, Other - no evidence of trauma Neck: Positive: Supple Respiratory/Lung Sounds: Positive: Clear to Auscultation, Breath Sounds Present Cardiovascular: Positive: RRR, Pulses are Symmetrical in both Upper and Lower Extremities Musculoskeletal: Positive: Normal, Strength/ROM Intact Neurological: Positive: Sensory/Motor Intact, Alert, Oriented to Person Place, Time, CN Intact II-III, Speech Normal Psychiatric: Positive: Normal, Affect/Mood Appropriate AVPU Assessment: Alert Diagnostics - Vital Signs Vital Signs Temp Pulse Resp BP Pulse Ox 05/06/18 10:57 97.9 F 84 16 147/89 97 - Laboratory Result Diagrams: 05/06/18 11:27 05/06/18 11:27 Lab Statement: Any lab studies that have been ordered have been reviewed, and results considered in the medical decision making process. Course/Dx - Course Course Of Treatment: Physical examination, patient states she feels some left- sided weakness and numbness but this is at her baseline and states it is usually worse after she has a seizure and returns to baseline approximately one hour after the seizure. She states she fell on her way into [place] today before the seizure occurred, however denies hitting her head. She denies any pain or headaches at this time. She denies confusion or memory loss. CT brain obtained 1 month ago, so this was not repeated as there are no new findings or concern over new head injury. Patient states she feels at her baseline at this point. Labs are obtained including a phenobarbital level. She is encouraged to continue to follow up with Dr. Crockett. Previous phenobarbitol level therapeutic. Patient is back to baseline and feeling well. Neuro was not asked for a consult as patient has not lingering symptoms and this appears to be within her normal seizure activity. She is discharged with request to f/u with Dr. Crockett. - Diagnoses Differential Diagnosis/HQI/PQRI: Positive: Known Seizure Disorder, Other Provider Diagnoses: Seizure Is Visit Related: No Discharge - Sign-Out/Discharge Documenting (check all that apply): Patient Departure - Discharge Plan Condition: Stable Disposition: HOME Referrals: Piter Thomas MD [Primary Care Provider] - Additional Instructions: Please follow up with Dr. Crockett As discussed, no new findings through your labs today. Continue your phenobarbitol therapy daily and return if you have another seizure. - Billing Disposition and Condition Condition: STABLE Disposition: Home
[2018-05-06 11:38] LABS: ABS Basophils 0.1 10^3/ul (0-0.2); ABS Eosinophils 0 10^3/ul (0-0.6); ABS Lymphocytes 0.4 10^3/ul (1.0-4.8); ABS Monocytes 0.4 10^3/ul (0-0.8); ABS Neutrophils 2.4 10^3/ul (1.5-7.7); ABS Nucleated RBC 0 10^3/ul; Eosinophil % 1.3 %; Hematocrit 40 % (35-47); Hemoglobin 13.1 g/dl (12.0-16.0); Lymphocyte % 11.6 %; Mean Corpuscular HGB Conc 33 g/dl (31-36); Mean Corpuscular Hemoglobin 33 pg (27-31); Mean Corpuscular Volume 99 fL (80-97); Mean Platelet Volume 8.1 fL (7.4-10.4); Nucleated Red Blood Cells % 0; Platelet Count 237 10^3/ul (150-450); Red Blood Count 4.01 10^6/ul (4.00-5.40); Red Cell Distribution Width 15 % (10.5-15); White Blood Count 3.3 10^3/ul (3.5-10.8)
[2018-05-06 11:43] LABS: INR 2.39 (0.77-1.02)
[2018-05-06 12:02] LABS: Albumin 3.9 g/dL (3.2-5.2); Albumin/Globulin Ratio 1.4 (1-3); BUN/Creatinine Ratio 24.1 (8-20); Calcium 9.2 mg/dL (8.6-10.3); Globulin 2.8 g/dL (2-4); Magnesium 1.7 mg/dL (1.9-2.7); Potassium 3.9 mmol/L (3.5-5.0); Total Bilirubin 0.3 mg/dL (0.2-1.0); Total Protein 6.7 g/dL (6.4-8.9)
[2018-05-06 13:56] VITALS: BP 113/83
== END 2018-05-06 11:17 | disposition home or self-care (01) ==
LOC: ED 10:56
DX: G40.401 Other generalized epilepsy and epileptic syndromes, not intractable, with status epilepticus (principal); R53.1 Weakness; R20.0 Anesthesia of skin; D64.9 Anemia, unspecified; Z79.01 Long term (current) use of anticoagulants; Z86.718 Personal history of other venous thrombosis and embolism; Z85.42 Personal history of malignant neoplasm of other parts of uterus; Q85.8 Other phakomatoses, not elsewhere classified
CPT/HCPCS: 36415; 80053; 80184; 83735; 85025; 85610; 99283; J1642

== ENCOUNTER 2018-11-15 23:28 | Inpatient (IN) | payer MEDICARE ==
[2018-11-16] MEDS ORDERED: Ondansetron INJ* 2 MG/ML VIAL IV ONE (00:17)
[2018-11-16] MEDS ORDERED: NS 0.9% 1000 ML** 1,000 ML IV ONE ×2 (00:17→03:02)
--- NOTE | 2018-11-16 00:20 | ED ---
GI/ HPI - HPI Summary HPI Summary: 63 year old female presents with abdominal pain today. She states this pain starts in epigastric and radiates to her back. She admits to nausea but no vomiting. No diarrhea or constipation. Had normal bowel movement today. States ate some food that initially made pain feel better and then it felt worst. She denies any fevers. No chest pain or shortness of breath. No urinary symptoms. Has never had this pain before.took some tyenlol with minimal relief. Patient has had uterus and ovaries removed from uterine cancer. Has history of seizures and PE so is on Coumadin. - History of Current Complaint Chief Complaint: EDAbdPain Time Seen by Provider: 11/16/18 00:07 Stated Complaint: ABD PAIN/BACK PAIN AND DIZZY PER PT Pain Intensity: 9 - Additional Pertinent History Primary Care Physician: DACIA - Allergy/Home Medications Allergies/Adverse Reactions: Allergies Allergy/AdvReac Type Severity Reaction Status Date / Time No Known Allergies Allergy Verified 11/15/18 23:32 PMH/Surg Hx/FS Hx/Imm Hx Endocrine/Hematology History: Reports: Hx Anticoagulant Therapy, Hx Anemia, Other Endocrine/Hematological Disorders - facial port wine staining Denies: Hx Diabetes, Hx Thyroid Disease Cardiovascular History: Reports: Hx Deep Vein Thrombosis, Hx Syncope Denies: Hx Hypertension, Hx Pacemaker/ICD Respiratory History: Reports: Hx Pulmonary Embolism, Other Respiratory Problems/ Disorders - 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, hx uterine cancer Denies: Hx Asthma, Hx Chronic Obstructive Pulmonary Disease (COPD) History: Denies: Hx Dialysis, Hx Renal Disease Musculoskeletal History: Reports: Hx Back Problems, Other Musculoskeletal History - left sided weakness Denies: Hx Osteoporosis Sensory History: Reports: Hx Contacts or Glasses, Hx Glaucoma, Hx Vision Problem , Hx Hearing Problem Denies: Hx Hearing Aid Opthamlomology History: Reports: Hx Contacts or Glasses, Hx Glaucoma, Hx Vision Problem Neurological History: Reports: Hx Seizures, Other Neuro Impairments/Disorders - Sturge-Hughes disease Denies: Hx Dementia Psychiatric History: Reports: Hx Panic Disorder - UPSETS EASILY Denies: Hx Substance Abuse - Cancer History Cancer Type, Location and Year: uterine. RADHA2010 Hx Chemotherapy: Yes - UTERINE CANCER Hx Radiation Therapy: Yes - UTERINE CANCER - Surgical History Surgery Procedure, Year, and Place: TOTAL HYSTERECTOMY. Right arm. Left knee. ARNOLD FILTER- 1.5T ONLY ( FOR MRI) Hx Anesthesia Reactions: No - Immunization History Immunizations Up to Date: Yes Infectious Disease History: No Infectious Disease History: Denies: Hx Clostridium Difficile, Hx Hepatitis, Hx Human Immunodeficiency Virus (HIV), Traveled Outside the [place] in Last 30 Days - Family History Known Family History: Negative: Cardiac Disease, Hypertension, Diabetes - Social History Alcohol Use: None Hx Substance Use: No Substance Use Type: Reports: None Hx Tobacco Use: No Smoking Status (MU): Never Smoked Tobacco Review of Systems Negative: Fever Negative: Chest Pain Negative: Shortness Of Breath Positive: Abdominal Pain, Nausea. Negative: Vomiting, Diarrhea All Other Systems Reviewed And Are Negative: Yes Physical Exam Triage Information Reviewed: Yes Vital Signs On Initial Exam: Initial Vitals Temp Pulse Resp BP Pulse Ox 97.3 F 100 17 140/75 95 11/15/18 23:30 11/15/18 23:30 11/15/18 23:30 11/15/18 23:30 11/15/18 23:30 Vital Signs Reviewed: Yes Appearance: Positive: Well-Appearing Skin: Positive: Warm, Dry Head/Face: Positive: Normal Head/Face Inspection Eyes: Positive: Normal, Conjunctiva Clear ENT: Positive: Pharynx normal Respiratory/Lung Sounds: Positive: Clear to Auscultation, Breath Sounds Present Cardiovascular: Positive: Normal, RRR Abdomen Description: Positive: Soft, Other: - tenderness epigastric region Bowel Sounds: Positive: Absent Musculoskeletal: Positive: Normal Neurological: Positive: Normal Psychiatric: Positive: Normal Diagnostics - Vital Signs Vital Signs Temp Pulse Resp BP Pulse Ox 11/15/18 23:30 97.3 F 100 17 140/75 95 - Laboratory Result Diagrams: 11/16/18 00:56 11/16/18 00:56 Lab Statement: Any lab studies that have been ordered have been reviewed, and results considered in the medical decision making process. - EKG No standard instances Cardiac Rate: Tachycardia EKG Rhythm: Sinus Tachycardia Summary of EKG Findings: sinus tachycardia Re-Evaluation - Re-Evaluation First Eval Re-Evaluation Time: 01:57 Comment: patient states will allow IV placed: one attempt GIGU Course/Dx - Course Course Of Treatment: 63 year old female presents with abdominal pain today. She states this pain starts in epigastric and radiates to her back. She admits to nausea but no vomiting. No diarrhea or constipation. Had normal bowel movement today. States ate some food that initially made pain feel better and then it felt worst. She denies any fevers. No chest pain or shortness of breath. No urinary symptoms. Has never had this pain before.took some tyenlol with minimal relief. Patient has had uterus and ovaries removed from uterine cancer. Has history of seizures and PE so is on Coumadin. on exam has tenderness in epigastric region. no rebound. wbc normal. inr 2.07. patient does not have a power port and is refusing to have an IV placed to place IV contrast for scan. ast 486 and alt 146 elevated. amylase is 791. pancreatitis 4898. troponin 0. crp normal. IV was attempted but was unable to be placed. finally got IV so patient went to CT scan. patient will be signed out to dr ashraf pending CT. - Diagnoses Differential Diagnoses - Female: Gall Bladder Disease, Gastritis, Pancreatitis Provider Diagnoses: Pancreatitis, Abdominal pain Discharge - Sign-Out/Discharge Documenting (check all that apply): Sign-Out Patient Signing out patient TO: Javier Ashraf - Discharge Plan Referrals: Piter Thomas MD [Primary Care Provider] -
[2018-11-16 01:18] LABS: ABS Lymphocytes 0.1 10^3/ul (1.0-4.8); ABS Neutrophils 3.4 10^3/ul (1.5-7.7); Eosinophil % 0.1 %; Hematocrit 39 % (35-47); Hemoglobin 13.1 g/dL (12.0-16.0); Lymphocyte % 3.6 %; Mean Corpuscular HGB Conc 34 g/dL (31-36); Mean Corpuscular Hemoglobin 33 pg (27-31); Mean Corpuscular Volume 99 fL (80-97); Mean Platelet Volume 8.2 fL (7.4-10.4); Nucleated Red Blood Cells % 0.1; Platelet Count 188 10^3/uL (150-450); Red Blood Count 3.92 10^6 /uL (3.70-4.87); Red Cell Distribution Width 16 % (10-15); White Blood Count 3.6 10^3/uL (3.5-10.8)
[2018-11-16 01:23] LABS: INR 2.07 (0.82-1.09)
[2018-11-16 01:35] LABS: Albumin/Globulin Ratio 1.3 (1-3); BUN/Creatinine Ratio 30.3 (8-20); C Reactive Protein 3.45 mg/L (<8.01); EGFR African American 109.1 (>60); EGFR Non-African American 90.2 (>60); Globulin 3.1 g/dL (2-4); Potassium 3.6 mmol/L (3.5-5.0); Total Bilirubin 0.9 mg/dL (0.2-1.0); Total Protein 7.1 g/dL (6.4-8.9)
[2018-11-16] MEDS ORDERED: Morphine INJ* 2 MG/ML 1 ML SYRINGE (TWO MG - NEW SYRINGE VERSION) IV ONE (01:51)
[2018-11-16 02:01] LABS: Urine Appearance Clear; Urine Bacteria 1+ (Absent); Urine Bilirubin Negative (Negative); Urine Blood 2+ (Negative); Urine Color Yellow; Urine Glucose Negative (Negative); Urine Ketones Negative (Negative); Urine Nitrite Negative (Negative); Urine Protein Negative (Negative); Urine Red Blood Cell Trace(0-2/hpf) (Absent); Urine Specific Gravity 1.015 (1.010-1.030); Urine Urobilinogen Negative (Negative); Urine White Blood Cell Trace(0-5/hpf) (Absent)
[2018-11-16] MEDS ORDERED: Iohexol 300* (CONTRAST) 10 ML SDV IV ONE (02:23)
[2018-11-16] MEDS ORDERED: Morphine 4 MG/ML VIAL (1 ml) 4 MG/ML VIAL IV PRN ×4 (04:33→20:15)
[2018-11-16] MEDS ORDERED: Ondansetron INJ* 2 MG/ML VIAL IV PRN (04:41)
[2018-11-16] MEDS ORDERED: Heparin VIAL(*) 5000 UNITS/ML VIAL (FIVE THOUSAND) SUBCUT SCH (06:00)
[2018-11-16] MEDS ORDERED: Enoxaparin(*) 80 MG/0.8 ML SYR SUBCUT SCH ×2 (06:00→17:00)
[2018-11-16] MEDS: NS 0.9% w/ 20 Meq KCL 1000 ML* 1,000 ML IV SCH ×3 (06:01→23:03)
--- NOTE | 2018-11-16 09:09 | HP ---
CC: Dr. Thomas HISTORY AND PHYSICAL: DATE OF ADMISSION: 11/16/18 HISTORY OF PRESENT ILLNESS: Ms. Lebron is a 63-year-old woman with history of Sturge-Hughes syndrome who presented to the emergency department overnight with epigastric abdominal pain that radiates to her back that began around 5 o' clock in the evening. She admits some nausea without any vomiting. She did not have any appetite for dinner. She denies any diarrhea or constipation. She earlier in the day tried to eat some food, but felt the pain get better and then worse. The patient denies any history of pancreatic problems or gallstones. However, CT in 2014 shows gallstones issue. We know that the patient is a poor historian. The patient is without any other recent illness with fever or focal infectious symptoms. The patient denies any recent medication changes. PAST MEDICAL HISTORY: Glaucoma; blindness in the right eye; seizure disorder; Sturge-Hughes syndrome; history of uterine cancer, in remission; history of pulmonary embolism, on chronic anticoagulation; hyperlipidemia; dry mouth. PAST SURGICAL HISTORY: Hysterectomy, IVC filter. MEDICATIONS ON ADMISSION: The patient could not say her medication list. Previous documentation in the computer shows that she is on: 1. Atorvastatin. 2. Warfarin. 3. Pilocarpine tablets. 4. Pilocarpine drops. 5. Phenobarbital in the evening. 6. Cromolyn eye drops. 7. Brimonidine eye drops. 8. Acetaminophen. ALLERGIES: She had leukopenia from DEPAKOTE and she had rash from DILANTIN. FAMILY HISTORY: Brother had lung cancer. Mother and father of old age. She has four siblings. When asked that if she has family in town, she says no. SOCIAL HISTORY: She is disabled. She lives by herself. She has no children. She never smoked tobacco. No alcohol or drug use. REVIEW OF SYSTEMS: The patient denies any sore throat or cough. The patient denies any chest pain or palpitations. The patient denies any shortness of breath. The patient denies any dysuria or frequency. Remainder of 14-point review of systems is negative other than mentioned in the HPI. PHYSICAL EXAMINATION GENERAL: She is an older woman, in no acute distress. VITAL SIGNS: Temperature is 36.8, pulse 106 to 111, respirations 15, blood pressure 95/62, oxygen saturation is 95%. HEENT: Her extraocular muscles are intact. Her pupils are unreactive on the right, normal on the left. Oropharynx: Dry mouth. No lesions other than the port wine stain on the soft palate. NECK: Notable for a very large port wine hemangioma extending over all of her right and some of left face and neck and into her lips and tongue, distorting the lip architecture. No adenopathy. No carotid bruit or thyromegaly. LUNGS: Clear to auscultation and percussion bilaterally. HEART: Tachycardic, regular, no murmurs. ABDOMEN: Soft, tender epigastric. Positive bowel sounds. No masses. No guarding. EXTREMITIES: No peripheral edema. Dorsalis pedis pulses are 1+. NEUROLOGIC: She has some left upper extremity weakness and mild contractions, but she uses all of her upper extremities equally. Deep tendon reflexes are absent in the lower extremities. She is alert and oriented x3. DIAGNOSTIC STUDIES/LAB DATA: White count 3.6, hemoglobin 13.1, hematocrit 39% , platelets are 188. INR is 2.07. Sodium 138, potassium 3.6, chloride 104, bicarb 28, BUN 20, creatinine 0.66, glucose is 148. Lactic acid 2.1. Calcium 9.0. AST 486, ALT 141, alkaline phosphatase 126. Troponin 0.00. Amylase 791, lipase 4898. Urinalysis shows 2+ blood, 1+ bacteria, otherwise negative. EKG shows sinus tachycardia with mild ST depressions in V2 to V6 consistent with possible rate-related ischemia. Previous EKG in March [address] depressions, but to a lesser degree. CT abdomen and pelvis shows cyst in the liver, no acute pancreatic inflammation. There is some sclerosis in the sacrum noted. There are gallstones visible in the gallbladder, but no pericholecystic fluid, no gallstones visible in the bile duct. ASSESSMENT AND PLAN: 1. Gallstone pancreatitis. Differential for pancreatitis normally would include high triglycerides, medication effect, or alcohol abuse, but in this case it seems clearly this is due to gallstones. The patient will be admitted to the hospital, will be kept n.p.o., bowel rest, and continue intravenous fluids to prevent dehydration. She can have supportive care with pain control and antiemetics. We will trend her amylase, lipase, and liver enzymes to ensure that she does not have an obstructive picture. If she is obstructed, she will need GI consult and ERCP. If she is not obstructed, she will probably recover and require a cholecystectomy done in 3 to 7 days. 2. The patient has history of seizures, likely related to her Sturge-Hughes syndrome. We will check her phenobarbital level and try to continue her oral phenobarbital despite her n.p.o. status. 3. For history of pulmonary emboli, I will stop her warfarin and give her Lovenox twice a day for full dose anticoagulation. This can be stopped quickly if she has any hemorrhagic complication or require a surgery. 4. DVT prophylaxis. As above, Lovenox. [id number]/[facility] #: [id number] [facility] HOSPITALFranci
[2018-11-16] MEDS: PILOCARPINE 4% RIGHT EYE SCH ×3 (14:26→19:44)
[2018-11-16 14:29] LABS: Albumin 3.4 g/dL (3.2-5.2); Albumin/Globulin Ratio 1.3 (1-3); Calcium 8.3 mg/dL (8.6-10.3); EGFR African American 150.3 (>60); EGFR Non-African American 124.2 (>60); Globulin 2.7 g/dL (2-4); Total Bilirubin 0.4 mg/dL (0.2-1.0); Total Protein 6.1 g/dL (6.4-8.9)
[2018-11-16] MEDS ORDERED: Lidocaine 2.5%/Prilocain 2.5%* 5 GM TUBE TOPICAL ONE (18:00)
[2018-11-16] MEDS: CMCS:Brimonidine P 0.15%(NF) OPH SOL 5 ML BTL RIGHT EYE SCH (19:42)
[2018-11-16] MEDS: PTO:Dorzolamide/Timolol OPTH (NF) 10 ML BOT BOTH EYES SCH (19:42)
[2018-11-16] MEDS: PHENobarbital TAB(*) 100 MG PO SCH (19:43)
[2018-11-16] MEDS ORDERED: Acetaminophen TAB* 325 MG PO PRN (20:04)
[2018-11-16] MEDS: Acetaminophen TAB* 325 MG PO PRN (20:15)
--- NOTE | 2018-11-16 21:02 | CONS ---
GASTROENTEROLOGY CONSULT: DATE CONSULTING PHYSICIAN: Piter Thomas; Rian Awad REASON FOR CONSULT: Pancreatitis first episode with elevated transaminases and gallstones known from 2015 CT and still present today. HISTORY OF PRESENT ILLNESS: This 63-year-old woman with Sturge-Hughes syndrome and seizures taking phenobarbital for many years with fairly good control. Her last neurology note referred to a seizure in April. Current illness began yesterday afternoon when she developed epigastric pain. She came to the emergency room and was admitted. Her white count was normal but her lipase was 4900, alk phos slightly elevated at 126, bilirubin 0.9 with ALT 141. Over night she has continued to have some pain although her focus right now is a headache which she says she takes Tylenol for. It is similar prior headaches. Her concern is not really on the abdomen. There has been no vomiting or fever. She has never had anything like this before, indeed there were no prior lipases in the EMR. Gallstones were known from a January 2015 CT of the abdomen and pelvis ordered by Dr. Thomas. There was no gallbladder wall thickening or pancreatitis at that time. The patient is generally a poor historian, being focused on symptoms that she believed should already have been relieved, basically headache, dry mouth. PAST MEDICAL HISTORY: 1. Sturge-Hughes syndrome. 2. Status post hysterectomy for uterine cancer 2010. 3. History of pulmonary emboli - 2010 with vena cava umbrella placed. She has been on warfarin ever since with her INR generally well controlled. The highest reading was February 2018 at 3.50 at a time when she was admitted with left-sided weakness for which no definite diagnosis appears to have been reached. Discharge summary refers to no definite signs of stroke on MRI and no further neurologic workup recommended. Aspirin was deferred. SOCIAL HISTORY: She lives alone in her apartment. She gets rides to get her groceries. Her mother, a former hospital huller operator at this institution, several years ago of old age. She has several siblings but apparently is not close to them. REVIEW OF SYSTEMS: She denies any history of cardiac or direct pulmonary disease. There is no history of skin problems other than the Sturge-Hughes. She had a colonoscopy in October 2011 that was normal, except for internal and external hemorrhoids. There is no history of renal disease. Baseline hemoglobins were in the high 12s to low 13s and have been constant for last 4 years. Left sided weakness fall 2018 unclearcause. PHYSICAL EXAM: She is a woman with striking purple vascular changes of Sturge- Hughes syndrome on the face, predominantly right side. Her voice is normal and recognized by me. Temperature is 98.5, pulse 77 and regular, blood pressure 108 /66. She has no adenopathy. There is an access port in the right upper pectoral area which he says had been present for years. Lungs are clear. Heart sounds are regular and crisp without any murmur. Her abdomen has normal bowel sounds and is mostly soft, though there is a little bit of guarding on the right side and some tenderness in the right upper quadrant. Rectal deferred. Extremities unremarkable. Neurologic shows her to be at her baseline. DIAGNOSTIC STUDIES/LAB DATA: Sodium 140, potassium 4.0, BUN 12, creatinine 0.50 and repeat transaminases showed AST up to 821, ALT 340, alkaline phosphatase 124, bilirubin 0.4. CRP actually normal at 3.45. CT review - gallbladder is quite large with multiple stones, many calcified, others not. The common duct is not obviously dilated. There are duodenal diverticula. The distal common duct is quite close to where the vena cava umbrella is. Pancreas is minimally indistinct at the head. IMPRESSION: This 63-year-old woman known to have gallstones, currently has a heavy concentration of them in the gallbladder which appears to be the only likely cause of this illness. . She has duodenal diverticula that may predispose to common duct passage of stones. At this time, the episode of pancreatitis appears to be receding. It is of note that her bilirubin has not risen, which means that there is no obstructing stone. Her alkaline phosphatase has been up modestly for 3 to 4 years. There was no accompanying elevation of transaminases. Whether this could be due to her phenobarbital or other meds is unclear. It could relate to her duodenal diverticula and common duct stones though that would not usually be so stable. An MRCP would be of interest but the area of greatest concern would be immediately adjacent to the vena cava umbrella and the possibility for artifact is considered probable. For the moment most important thing is follow her course clinically and LFTs and get a surgery consult. . [id number]/[facility] #: [id number] [facility] CENTERFranci
[2018-11-16] MEDS: PILOCARPINE 7.5 MG PO SCH (21:24)
[2018-11-16] MEDS: Enoxaparin(*) 80 MG/0.8 ML SYR SUBCUT SCH (21:25)
--- NOTE | 2018-11-16 23:11 | PN ---
Subjective Date of Service: 11/16/18 Interval History: continues to c/o abd pain , RUQ, increased pain in the abd with deep breath, Denies fever or chills , denies chest pain or shortness of breath. repeat lab work was reviewed and noted to have LFT's that are trending up- GI was consulted Family History: Unchanged from Admission Social History: Unchanged from Admission Past Medical History: Unchanged from Admission Objective Active Medications: Acetaminophen (Tylenol Tab*) 975 mg PO TID PRN PRN Reason: PAIN Brimonidine Tartrate (Alphagan P 0.15%(Nf)) 1 drop RIGHT EYE BID [facility] Last Admin: 11/16/18 19:42 Dose: 1 drop Dorzolamide/Timolol (Cosopt (Nf)) 1 drop BOTH EYES BID [facility] Last Admin: 11/16/18 19:42 Dose: 1 drop Enoxaparin Sodium (Lovenox(*)) 80 mg SUBCUT Q12HR [facility] Last Admin: 11/16/18 21:25 Dose: 80 mg Potassium Chloride/Sodium Chloride (Ns 0.9% W/ 20 Meq Kcl 1000 Ml*) 1,000 mls @ 150 mls/hr IV PER RATE [facility] Last Admin: 11/16/18 23:03 Dose: 150 mls/hr Morphine Sulfate (Morphine 4 Mg/Ml Vial (1 Ml)) 3 mg IV Q3H PRN PRN Reason: PAIN SCALE 6-10 Nf* (Cromolyn Sodium [Cromolyn Sodium] 4 %) 4 % BOTH EYES QID PRN PRN Reason: ITCHING Ondansetron HCl (Zofran Inj*) 4 mg IV Q6H PRN PRN Reason: NAUSEA Phenobarbital (Phenobarbital Tab(*)) 150 mg PO BEDTIME [facility] Last Admin: 11/16/18 19:43 Dose: 150 mg Pilocarpine HCl (Pilocarpine 4% Opth.Jazlyn*) 1 drop RIGHT EYE QID [facility] Last Admin: 11/16/18 19:44 Dose: 1 drop Pilocarpine HCl (Pilocarpine Tab (Nf)) 7.5 mg PO TID [facility] Last Admin: 11/16/18 21:24 Dose: 7.5 mg Vital Signs - 8 hr 11/16/18 11/16/18 11/16/18 16:04 16:13 18:47 Temperature 98.0 F Pulse Rate 77 Respiratory 20 Rate Blood Pressure 108/66 (mmHg) O2 Sat by Pulse 96 Oximetry 11/16/18 11/16/18 11/16/18 19:43 20:14 21:45 Temperature Pulse Rate Respiratory 19 18 18 Rate Blood Pressure (mmHg) O2 Sat by Pulse Oximetry Oxygen Devices in Use Now: None Appearance: resting in bed appears comfortable Eyes: No Scleral Icterus Ears/Nose/Mouth/Throat: Clear Oropharnyx, Mucous Membranes Moist Neck: NL Appearance and Movements; NL JVP, Trachea Midline Respiratory: Symmetrical Chest Expansion and Respiratory Effort, Clear to Auscultation Cardiovascular: NL Sounds; No Murmurs; No JVD, No Edema Abdominal: - - RUQ pain with palpation, BS active x 4 . abd soft Extremities: No Edema, No Clubbing, Cyanosis Skin: - - port wine stain to right side of the face extending to the neck. Neurological: Alert and Oriented x 3 Nutrition: Taking PO's Result Diagrams: 11/17/18 07:35 11/17/18 07:35 Assess/Plan/Problems-Billing Assessment: Ms. Lebron is a 63 female that presented with abd pain found to have gallstone pancreatitis . - Patient Problems (1) Pancreatitis Current Visit: Yes Status: Acute Code(s): K85.90 - ACUTE PANCREATITIS WITHOUT NECROSIS OR INFECTION, UNSP SNOMED Code(s): 26739382 Comment: Continues to have abd pain LFt's trending up - GI consulted, recommendations pending -continue IVF's - npo x meds - repeat cmp in the AM (2) Hx of pulmonary embolus Current Visit: Yes Status: Acute Code(s): Z86.711 - PERSONAL HISTORY OF PULMONARY EMBOLISM SNOMED Code(s): 601645966 Comment: lovenox full dose - will stop comadin - may need surgical intervention (3) Seizures Current Visit: Yes Status: Acute Code(s): R56.9 - UNSPECIFIED CONVULSIONS SNOMED Code(s): 87526830 Comment: continue phenobarbital (4) Sturge-Hughes syndrome with glaucoma Current Visit: No Status: Acute Code(s): Q85.8 - OTHER PHAKOMATOSES, NOT ELSEWHERE CLASSIFIED; H40.9 - UNSPECIFIED GLAUCOMA SNOMED Code(s): 928609795 Comment: continue eye drops as perscribed (5) DVT prophylaxis Current Visit: Yes Status: Acute Code(s): Z29.9 - ENCOUNTER FOR PROPHYLACTIC MEASURES, UNSPECIFIED SNOMED Code(s): 743868161 Comment: lovenox (6) Full code status Current Visit: Yes Status: Acute Code(s): Z78.9 - OTHER SPECIFIED HEALTH STATUS SNOMED Code(s): 588108045
[2018-11-17] MEDS: NS 0.9% 1000 ML** 1,000 ML IV SCH ×2 (00:12→06:53)
[2018-11-17] MEDS: Acetaminophen TAB* 325 MG PO PRN ×3 (02:41→21:24)
[2018-11-17] MEDS ORDERED: Fluticasone NASAL SPRAY 50MCG* 16 gm SPRAY BTL BOTH NARES PRN (06:07)
[2018-11-17] MEDS ORDERED: Cetirizine* 10 MG TAB PO SCH (06:45)
[2018-11-17 08:12] LABS: ABS Eosinophils 0.1 10^3/ul (0-0.6); ABS Lymphocytes 0.5 10^3/ul (1.0-4.8); ABS Monocytes 0.4 10^3/ul (0-0.8); ABS Neutrophils 4.7 10^3/ul (1.5-7.7); Eosinophil % 1.4 %; Hematocrit 33 % (35-47); Hemoglobin 10.9 g/dL (12.0-16.0); Mean Corpuscular HGB Conc 34 g/dL (31-36); Mean Corpuscular Hemoglobin 33 pg (27-31); Mean Corpuscular Volume 99 fL (80-97); Mean Platelet Volume 8.5 fL (7.4-10.4); Platelet Count 176 10^3/uL (150-450); Red Blood Count 3.27 10^6 /uL (3.70-4.87); Red Cell Distribution Width 16 % (10-15); White Blood Count 5.7 10^3/uL (3.5-10.8)
[2018-11-17 08:21] LABS: Albumin 3.1 g/dL (3.2-5.2); Albumin/Globulin Ratio 1.2 (1-3); BUN/Creatinine Ratio 17.8 (8-20); Calcium 7.7 mg/dL (8.6-10.3); EGFR African American 169.7 (>60); EGFR Non-African American 140.3 (>60); Globulin 2.5 g/dL (2-4); Potassium 3.4 mmol/L (3.5-5.0); Total Bilirubin 0.4 mg/dL (0.2-1.0); Total Protein 5.6 g/dL (6.4-8.9)
[2018-11-17] MEDS: PILOCARPINE 7.5 MG PO SCH ×3 (09:14→21:24)
[2018-11-17] MEDS: Enoxaparin(*) 80 MG/0.8 ML SYR SUBCUT SCH (09:14)
[2018-11-17] MEDS: PTO:Dorzolamide/Timolol OPTH (NF) 10 ML BOT BOTH EYES SCH ×2 (09:15→21:27)
[2018-11-17] MEDS: CMCS:Brimonidine P 0.15%(NF) OPH SOL 5 ML BTL RIGHT EYE SCH ×2 (09:15→21:27)
[2018-11-17] MEDS: PILOCARPINE 4% RIGHT EYE SCH ×4 (09:15→21:27)
[2018-11-17] MEDS ORDERED: NS 0.9% w/ 20 Meq KCL 1000 ML* 1,000 ML IV SCH (11:00)
[2018-11-17] MEDS ORDERED: Morphine 4 MG/ML VIAL (1 ml) 4 MG/ML VIAL IV PRN (12:13)
--- NOTE | 2018-11-17 16:57 | PN ---
Subjective Date of Service: 11/17/18 Interval History: patient continues to c/o RUQ abd pain, reports that pain has improved since admission. Denies chest pain or shortness of breath. Denies v/d. reports occasional nausea. denies fever or chills Labs reviewed potassium slightly decreased at 3.4, LfT's improving. Lipase improved GI consulted and recommended trending LFT's and surgical consultation Surgery consulted and has recommended surgery - likely tomorrow - Will need to hold Lovenox 12-24 hours prior to surgery - will get INR this evening- currently pending Family History: Unchanged from Admission Social History: Unchanged from Admission Past Medical History: Unchanged from Admission Objective Active Medications: Acetaminophen (Tylenol Tab*) 975 mg PO TID PRN PRN Reason: PAIN Last Admin: 11/17/18 11:06 Dose: 975 mg Brimonidine Tartrate (Alphagan P 0.15%(Nf)) 1 drop RIGHT EYE BID [facility] Last Admin: 11/17/18 09:15 Dose: 1 drop Cetirizine HCl (Zyrtec*) 10 mg PO DAILY [facility] Last Admin: 11/17/18 06:52 Dose: 10 mg Dorzolamide/Timolol (Cosopt (Nf)) 1 drop BOTH EYES BID [facility] Last Admin: 11/17/18 09:15 Dose: 1 drop Enoxaparin Sodium (Lovenox(*)) 80 mg SUBCUT Q12HR [facility] Last Admin: 11/17/18 09:14 Dose: 80 mg Fluticasone Propionate (Flonase Nasal [place] 50mcg*) 2 spray BOTH NARES DAILY PRN PRN Reason: CONGESTION Last Admin: 11/17/18 06:52 Dose: 2 spray Potassium Chloride/Sodium Chloride (Ns 0.9% W/ 20 Meq Kcl 1000 Ml*) 1,000 mls @ 100 mls/hr IV PER RATE [facility] Morphine Sulfate (Morphine 4 Mg/Ml Vial (1 Ml)) 2 mg IV Q4H PRN PRN Reason: PAIN SCALE 6-10 Nf* (Cromolyn Sodium [Cromolyn Sodium] 4 %) 4 % BOTH EYES QID PRN PRN Reason: ITCHING Ondansetron HCl (Zofran Inj*) 4 mg IV Q6H PRN PRN Reason: NAUSEA Last Admin: 11/17/18 11:16 Dose: 4 mg Phenobarbital (Phenobarbital Tab(*)) 150 mg PO BEDTIME [facility] Last Admin: 11/16/18 19:43 Dose: 150 mg Pilocarpine HCl (Pilocarpine 4% Opth.Jazlyn*) 1 drop RIGHT EYE QID [facility] Last Admin: 11/17/18 13:48 Dose: 1 drop Pilocarpine HCl (Pilocarpine Tab (Nf)) 7.5 mg PO TID [facility] Last Admin: 11/17/18 13:48 Dose: 7.5 mg Vital Signs - 8 hr 11/17/18 11/17/18 11/17/18 09:13 11:15 15:15 Temperature 98.7 F 98 F Pulse Rate 80 81 Respiratory 18 16 20 Rate Blood Pressure 123/62 114/60 (mmHg) O2 Sat by Pulse 95 96 Oximetry Oxygen Devices in Use Now: None Appearance: alert, no acute distress resting in bed Eyes: No Scleral Icterus Ears/Nose/Mouth/Throat: Clear Oropharnyx, Mucous Membranes Moist, - - port wine stain noted to right face that extends to neck, back and right arm Neck: NL Appearance and Movements; NL JVP, Trachea Midline Respiratory: Symmetrical Chest Expansion and Respiratory Effort, Clear to Auscultation Cardiovascular: NL Sounds; No Murmurs; No JVD, No Edema Abdominal: NL Sounds; No Tenderness; No Distention, - - RUQ abd pain with palpation , abd soft, bs are active x 4 Extremities: No Edema, No Clubbing, Cyanosis Skin: No Rash or Ulcers Neurological: Alert and Oriented x 3 Nutrition: - - NPO x meds Result Diagrams: 11/18/18 05:15 11/18/18 05:15 Microbiology and Other Data: Microbiology 11/16/18 01:43 Urine Culture - Final Urine Assess/Plan/Problems-Billing Assessment: Ms. Lebron is a 63 female that presented with abd pain found to have gallstone pancreatitis . - Patient Problems (1) Pancreatitis Current Visit: Yes Status: Acute Code(s): K85.90 - ACUTE PANCREATITIS WITHOUT NECROSIS OR INFECTION, UNSP SNOMED Code(s): 63318947 Comment: Continues to have abd pain LFt's trending down - GI consulted recommended trending lft's and surgery consult surgery consulted- will need surgery likely tomorrow - will need to hold lovenox 12 hours prior to surgery - INR pending patient is able to carry out daily activites without the development of chest pain. Her last echo was 2010 which showed EF 55-60 and no wall motion abnormalities. the patient is a acceptable canidate for surgery at this time - no further work up is required -continue IVF's - npo x meds - repeat BMP and LFT's in the AM (2) Hx of pulmonary embolus Current Visit: Yes Status: Acute Code(s): Z86.711 - PERSONAL HISTORY OF PULMONARY EMBOLISM SNOMED Code(s): 599932087 Comment: lovenox full dose -stopped coumadin 11/16 - needs surgical intervention stop lovenox 12-24 hours prior to surgery - will repeat INR tonight and in the AM -pending (3) Seizures Current Visit: Yes Status: Acute Code(s): R56.9 - UNSPECIFIED CONVULSIONS SNOMED Code(s): 35952945 Comment: continue phenobarbital (4) Sturge-Hughes syndrome with glaucoma Current Visit: No Status: Acute Code(s): Q85.8 - OTHER PHAKOMATOSES, NOT ELSEWHERE CLASSIFIED; H40.9 - UNSPECIFIED GLAUCOMA SNOMED Code(s): 451351079 Comment: continue eye drops as perscribed (5) DVT prophylaxis Current Visit: Yes Status: Acute Code(s): Z29.9 - ENCOUNTER FOR PROPHYLACTIC MEASURES, UNSPECIFIED SNOMED Code(s): 027295789 Comment: lovenox - will be held -24 hours prior to surgery (6) Full code status Current Visit: Yes Status: Acute Code(s): Z78.9 - OTHER SPECIFIED HEALTH STATUS SNOMED Code(s): 628075758 Status and Disposition: inpatient
[2018-11-17] MEDS: NS 0.9% w/ 20 Meq KCL 1000 ML* 1,000 ML IV SCH ×2 (18:03→20:46)
[2018-11-17 18:37] LABS: INR 4.07 (0.82-1.09)
--- NOTE | 2018-11-17 18:50 | PN ---
Progress Note - Progress Note Date of Service: 11/17/18 Note: Brief Surgery note: (full consult dictated) 63 yo female on chronic AC for hx of DVT/PE with clinical dx of gallstone pancreatitis which is improving. She is tentatively added onto the OR schedule for tomorrow. Until then she should be okay w/ clear liquids which I ordered. I also held her Lovenox, as 24 hrs would be preferable prior to OR. A repeat INR is also pending, as are labs for tomorrow a.m. She was seen earlier by Dr. Cardona.
[2018-11-17] MEDS: Loperamide CAP* 2 MG PO PRN (21:22)
[2018-11-17] MEDS: PHENobarbital TAB(*) 100 MG PO SCH (21:23)
--- NOTE | 2018-11-17 22:38 | CONS ---
CC: Dr. Piter Thomas; Dr. Geovani Bailon * SURGICAL CONSULT NOTE: DATE OF CONSULT: 11/17/18 ATTENDING PHYSICIAN: Dr. Berto Cardona. CHIEF COMPLAINT: Abdominal pain. HISTORY OF PRESENT ILLNESS: This is a 63-year-old female who noted onset of epigastric abdominal pain on the evening of 11/15/18. This is associated with nausea but no vomiting. Pain radiated to the back. She has not had any similar pain. She states that since admission, her pain has subsided significantly. She has had known gallstones at least by imaging from the CT of 2014. The patient was also seen and examined by Dr. Cardona. PAST MEDICAL HISTORY: Significant for Sturge-Hughes syndrome, glaucoma, blindness in the right eye, obesity, history of uterine cancer (status post total abdominal hysterectomy), left lower extremity DVT and PE (on chronic anticoagulation), seizure disorder, hyperlipidemia, dry mouth. PAST SURGICAL HISTORY: Include: 1. Total abdominal hysterectomy with bilateral salpingo-oophorectomy. 2. IVC filter placement. CURRENT MEDICATIONS: 1. Phenobarbital 100 mg one and one-half tablet q.h.s. 2. Warfarin 5 mg two and one half tablets daily. 3. Atorvastatin 40 mg once daily. 4. She also uses the following eye drops, Cosopt, Cromolyn, pilocarpine, and brimonidine. She also takes pilocarpine orally. ALLERGIES: DEPAKOTE (leukopenia), DILANTIN (rash). SOCIAL HISTORY: The patient lives alone. She is disabled. No history of tobacco, alcohol, or recreational drug use. REVIEW OF SYSTEMS: General: No recent acute illnesses other than described in the HPI. Per Dr. Bailon's note, she has had a colonoscopy in 2011, which was normal other than for hemorrhoids. Remainder of review of systems is negative or as detailed in her H and P. PHYSICAL EXAM: Vital Signs: Height 5 feet 3 inches, weight 187 pounds, BMI 33 , temperature 98.7, blood pressure 114/60, pulse 81, respirations 20, room air saturation 96%. General: A well-nourished, obese female in no acute distress. She is complaining of a headache. Skin: Warm and dry with port-wine stain of the right side of her face and neck and extending to the back. She has some deformity and thickening of the lips. She is apparently hard of hearing, but does have a hearing aid. Heart: Regular. No murmur appreciated. Lungs: Clear to auscultation. No rales or wheezes. Abdomen: Soft with a mild tenderness in the epigastrium and right upper quadrant though this is only mild to moderate. No palpable masses or organomegaly. Well-healed lower midline incision. Genitalia and Rectal: Not done. DIAGNOSTIC STUDIES/LAB DATA: White blood cell count 3.6 on admission with repeat at 5.7, hemoglobin 13.1 on admission with repeat of 10.9. Her INR is 2.07 and the repeat is pending. Most recent potassium 3.4. Lactic acid initially 2.1 with repeat 0.5. AST initially 486, repeat 821, and repeat again this morning 341. ALT had trended from 141 to 340 back down to 209. Alkaline phosphatase has been mildly elevated consistent with previous. Total bilirubin has been normal on repeat exam, most recent being 0.4. CRP was normal at 3.45. Lipase was elevated initially at 4898 and then repeat down to 1106 with most recent this morning of 113. Initial amylase was 791. Imaging: CT scan revealed multiple calcified gallstones, but no inflammatory changes. There was no intra or extra hepatic ductal dilatation and no gross inflammation of the pancreas. There was IVC filter noted. Duodenal diverticulosis without evidence of diverticulitis. An ultrasound was also obtained showing multiple gallstones, but no wall thickening or pericholecystic fluid. The common bile duct was mildly enlarged at 8 mm. A consult had also been done by Dr. Bailon who suspected that her gallstones were likely the cause of the acute illness. He felt that MRCP could be of help, but might result in significant artifact secondary to the IVC filter. He recommended following her course clinically as well as lab work. IMPRESSION: Gallstone pancreatitis. PLAN/RECOMMENDATIONS: Continue to follow labs as pancreatitis appears to be improving. If this continues to be the case, she is tentatively added to the OR schedule for tomorrow, 11/18/18 for laparoscopic cholecystectomy. SKY GARCIA [id number]/[facility] #: [id number] [facility]'S HOSPITALFranci
[2018-11-18 05:40] LABS: Hematocrit 33 % (35-47); Hemoglobin 10.8 g/dL (12.0-16.0); Mean Corpuscular HGB Conc 33 g/dL (31-36); Mean Corpuscular Hemoglobin 33 pg (27-31); Mean Corpuscular Volume 99 fL (80-97); Mean Platelet Volume 8.3 fL (7.4-10.4); Platelet Count 178 10^3/uL (150-450); Red Blood Count 3.29 10^6 /uL (3.70-4.87); Red Cell Distribution Width 16 % (10-15); White Blood Count 4.3 10^3/uL (3.5-10.8)
[2018-11-18 05:45] LABS: INR 3.74 (0.82-1.09)
[2018-11-18 05:49] LABS: Albumin 3.3 g/dL (3.2-5.2); Albumin/Globulin Ratio 1.2 (1-3); BUN/Creatinine Ratio 10.4 (8-20); Calcium 8.2 mg/dL (8.6-10.3); EGFR African American 157.6 (>60); EGFR Non-African American 130.2 (>60); Globulin 2.7 g/dL (2-4); Indirect Bilirubin 0.3 mg/dL (0.3-1.0); Potassium 3.7 mmol/L (3.5-5.0); Total Bilirubin 0.4 mg/dL (0.2-1.0)
[2018-11-18] MEDS: Acetaminophen TAB* 325 MG PO PRN ×2 (05:59→23:29)
[2018-11-18] MEDS ORDERED: Phytonadione Oral Solution* 5 MG/25 ML UDC PO ONE (07:33)
[2018-11-18] MEDS: PILOCARPINE 7.5 MG PO SCH ×3 (09:02→20:49)
[2018-11-18] MEDS: NS 0.9% w/ 20 Meq KCL 1000 ML* 1,000 ML IV SCH ×2 (09:02→20:47)
[2018-11-18] MEDS: PTO:Dorzolamide/Timolol OPTH (NF) 10 ML BOT BOTH EYES SCH ×2 (09:03→20:50)
[2018-11-18] MEDS: CMCS:Brimonidine P 0.15%(NF) OPH SOL 5 ML BTL RIGHT EYE SCH ×2 (09:03→20:50)
[2018-11-18] MEDS: PILOCARPINE 4% RIGHT EYE SCH ×4 (09:03→20:50)
[2018-11-18] MEDS ORDERED: Buffered Lidocaine 1% SYRIN* 1 ML/SYRINGE INTRADERM ONE (10:39)
[2018-11-18] MEDS: CROMOLYN SODIUM 4% BOTH EYES PRN ×3 (13:45→20:50)
--- NOTE | 2018-11-18 13:50 | PN ---
Progress Note - Progress Note Date of Service: 11/18/18 Note: Surgery Progress: S: Denies abd pain. Ted clears. O: Vital Signs - 8 hr 11/18/18 11/18/18 11/18/18 08:00 08:09 11:28 Temperature 98.3 F 98.2 F Pulse Rate 76 72 Respiratory 16 16 16 Rate Blood Pressure 101/59 119/68 (mmHg) O2 Sat by Pulse 94 93 Oximetry Intake and Output Last 24 Hours 11/16/18 11/17/18 11/18/18 11/19/18 06:59 06:59 06:59 06:59 Intake Total 0 3471 2886 Output Total 0 0 Balance 0 3471 2886 Weight 187 lb 1.6 oz Intake: IV Fluids 2981 2886 NS (0.9%) 884 600 NS (0.9%) 20 meq KCL 2097 2286 Oral 0 490 0 Output: Urine 0 0 Other: Estimated Void Large Date of Last Bowel t Movement # Bowel Movements 1 2 Estimated Stool Amount Small Medium # Voids 1 Gen: appears comfortable; NAD Heart: reg Lungs: clear Abd: soft; no sig tenderness Labs: Laboratory Tests Laboratory Tests 11/18/18 11/18/18 05:15 05:15 WBC 4.3 Total Bilirubin 0.40 AST 169 H ALT 157 H Alkaline Phosphatase 126 H Laboratory Tests 11/16/18 11/17/18 11/18/18 00:56 18:07 05:15 INR (Anticoag Therapy) 2.07 H 4.07 H 3.74 H A: gallstone pancreatitis, improved Supratherapeutic INR P: will need to move surgery to 11/19, pending correction of INR (she has already rec'd one dose of vit K with repeat INR at 1700); clears for today, then NPO for OR 11/19
--- NOTE | 2018-11-18 15:24 | PN ---
Subjective Date of Service: 11/18/18 Interval History: Patient is feeling well today. Patient denies abdominal pain, N/V, F/C, dizziness, diarrhea, CP, SOB, or other pain. Patient is anxious to get surgery completed. Family History: Unchanged from Admission Social History: Unchanged from Admission Past Medical History: Unchanged from Admission Objective Active Medications: Acetaminophen (Tylenol Tab*) 975 mg PO TID PRN PRN Reason: PAIN Last Admin: 11/18/18 05:59 Dose: 975 mg Brimonidine Tartrate (Alphagan P 0.15%(Nf)) 1 drop RIGHT EYE BID RICH Last Admin: 11/18/18 09:03 Dose: 1 drop Cetirizine HCl (Zyrtec*) 10 mg PO 2100 RICH Dorzolamide/Timolol (Cosopt (Nf)) 1 drop BOTH EYES BID RICH Last Admin: 11/18/18 09:03 Dose: 1 drop Fluticasone Propionate (Flonase Nasal [place] 50mcg*) 2 spray BOTH NARES DAILY PRN PRN Reason: CONGESTION Last Admin: 11/17/18 06:52 Dose: 2 spray Potassium Chloride/Sodium Chloride (Ns 0.9% W/ 20 Meq Kcl 1000 Ml*) 1,000 mls @ 100 mls/hr IV PER RATE RICH Last Admin: 11/18/18 09:02 Dose: 100 mls/hr Lactated Ringer's (Lactated Ringers 1000 Ml Bag*) 1,000 mls @ 125 mls/hr IV PER RATE RICH Lidocaine/Sodium Bicarbonate (Buffered Lidocaine 1% Syrin*) 1 ml INTRADERM ONCE ONE Stop: 11/19/18 07:01 Loperamide HCl (Imodium Cap*) 2 mg PO Q2H PRN PRN Reason: DIARRHEA Last Admin: 11/17/18 21:22 Dose: 2 mg Morphine Sulfate (Morphine 4 Mg/Ml Vial (1 Ml)) 2 mg IV Q4H PRN PRN Reason: PAIN SCALE 6-10 Pto: Cromolyn Sodium [Cromolyn Sodium] 4 %) 4 % BOTH EYES QID PRN PRN Reason: ITCHING Last Admin: 11/18/18 13:45 Dose: 4 % Ondansetron HCl (Zofran Inj*) 4 mg IV Q6H PRN PRN Reason: NAUSEA Last Admin: 11/17/18 11:16 Dose: 4 mg Phenobarbital (Phenobarbital Tab(*)) 150 mg PO BEDTIME [facility] Last Admin: 11/17/18 21:23 Dose: 150 mg Pilocarpine HCl (Pilocarpine 4% Opth.Jazlyn*) 1 drop RIGHT EYE QID [facility] Last Admin: 11/18/18 13:32 Dose: 1 drop Pilocarpine HCl (Pilocarpine Tab (Nf)) 7.5 mg PO TID [facility] Last Admin: 11/18/18 13:32 Dose: 7.5 mg Vital Signs - 8 hr 11/18/18 11/18/18 11/18/18 08:00 08:09 11:28 Temperature 98.3 F 98.2 F Pulse Rate 76 72 Respiratory 16 16 16 Rate Blood Pressure 101/59 119/68 (mmHg) O2 Sat by Pulse 94 93 Oximetry Oxygen Devices in Use Now: None Appearance: Patient is a 63yo female who appears stated age and is sitting in the bed in [facility]. Eyes: No Scleral Icterus, PERRLA Ears/Nose/Mouth/Throat: NL Teeth, Lips, Gums, Clear Oropharnyx, Mucous Membranes Moist Neck: NL Appearance and Movements; NL JVP, Trachea Midline Respiratory: Symmetrical Chest Expansion and Respiratory Effort, Clear to Auscultation Cardiovascular: NL Sounds; No Murmurs; No JVD, RRR, No Edema Abdominal: NL Sounds; No Tenderness; No Distention, No Hepatosplenomegaly Lymphatic: No Cervical Adenopathy Extremities: No Edema, No Clubbing, Cyanosis Skin: No Rash or Ulcers, No Nodules or Sclerosis Neurological: Alert and Oriented x 3, NL Sensation, NL Muscle Strength and Tone , - - Findings Consistent with Sturg-Hughes syndrome. Result Diagrams: 11/18/18 05:15 11/18/18 05:15 Microbiology and Other Data: Microbiology 11/16/18 01:43 Urine Culture - Final Urine Assess/Plan/Problems-Billing Assessment: Ms. Lebron is a 63 female that presented with abd pain found to have gallstone pancreatitis . Patient is improving pending surgery, hopefully tomorrow. - Patient Problems (1) Pancreatitis Current Visit: Yes Status: Acute Code(s): K85.90 - ACUTE PANCREATITIS WITHOUT NECROSIS OR INFECTION, UNSP SNOMED Code(s): 91456901 Comment: - Abdominal pain almost resolved - LFT's trending down. No EGD needed. Surgery and GI consult appreciated. - Cholecystectomy pending INR<1.4 patient is able to carry out daily activites without the development of chest pain. Her last echo was 2010 which showed EF 55-60 and no wall motion abnormalities. the patient is a acceptable canidate for surgery at this time - no further work up is required (2) Hx of pulmonary embolus Current Visit: Yes Status: Acute Code(s): Z86.711 - PERSONAL HISTORY OF PULMONARY EMBOLISM SNOMED Code(s): 962568218 Comment: - Supratherapeutic on Coumadin. - Reverse and bridge PRN. (3) Seizures Current Visit: Yes Status: Acute Code(s): R56.9 - UNSPECIFIED CONVULSIONS SNOMED Code(s): 39647670 Comment: - Continue phenobarbital (4) Sturge-Hughes syndrome with glaucoma Current Visit: No Status: Acute Code(s): Q85.8 - OTHER PHAKOMATOSES, NOT ELSEWHERE CLASSIFIED; H40.9 - UNSPECIFIED GLAUCOMA SNOMED Code(s): 356762338 Comment: - Continue eye drops as perscribed - Seizure Prophylaxis. (5) DVT prophylaxis Current Visit: Yes Status: Acute Code(s): Z29.9 - ENCOUNTER FOR PROPHYLACTIC MEASURES, UNSPECIFIED SNOMED Code(s): 989398520 Comment: - Supratherapeutic on Coumadin. Resume anticoagulation as soon as cleared after surgery. (6) Full code status Current Visit: Yes Status: Acute Code(s): Z78.9 - OTHER SPECIFIED HEALTH STATUS SNOMED Code(s): 896482540 Status and Disposition: Inpatient pending surgery.
[2018-11-18] MEDS: Loperamide CAP* 2 MG PO PRN ×2 (17:03→23:30)
[2018-11-18 18:05] LABS: INR 1.86 (0.82-1.09)
[2018-11-18] MEDS: PHENobarbital TAB(*) 100 MG PO SCH (20:48)
[2018-11-18] MEDS: Cetirizine* 10 MG TAB PO SCH (20:49)
[2018-11-19 06:07] LABS: Hematocrit 32 % (35-47); Hemoglobin 10.5 g/dL (12.0-16.0); Mean Corpuscular HGB Conc 33 g/dL (31-36); Mean Corpuscular Hemoglobin 33 pg (27-31); Mean Corpuscular Volume 99 fL (80-97); Mean Platelet Volume 8.1 fL (7.4-10.4); Platelet Count 172 10^3/uL (150-450); Red Blood Count 3.19 10^6 /uL (3.70-4.87); Red Cell Distribution Width 16 % (10-15); White Blood Count 3.8 10^3/uL (3.5-10.8)
[2018-11-19 06:12] LABS: INR 1.21 (0.82-1.09)
[2018-11-19 06:23] LABS: Albumin 3.1 g/dL (3.2-5.2); Albumin/Globulin Ratio 1.1 (1-3); Calcium 7.9 mg/dL (8.6-10.3); EGFR African American 150.3 (>60); EGFR Non-African American 124.2 (>60); Globulin 2.7 g/dL (2-4); Potassium 3.7 mmol/L (3.5-5.0); Total Bilirubin 0.4 mg/dL (0.2-1.0); Total Protein 5.8 g/dL (6.4-8.9)
[2018-11-19] MEDS: NS 0.9% w/ 20 Meq KCL 1000 ML* 1,000 ML IV SCH ×2 (06:54→17:32)
[2018-11-19] MEDS ORDERED: Buffered Lidocaine 1% SYRIN* 1 ML/SYRINGE INTRADERM ONE (07:00)
[2018-11-19] MEDS: PTO:Dorzolamide/Timolol OPTH (NF) 10 ML BOT BOTH EYES SCH ×2 (07:39→23:19)
[2018-11-19] MEDS: CMCS:Brimonidine P 0.15%(NF) OPH SOL 5 ML BTL RIGHT EYE SCH ×2 (07:39→23:20)
[2018-11-19] MEDS: PILOCARPINE 4% RIGHT EYE SCH ×4 (07:40→23:20)
[2018-11-19 08:17] LABS: ABS Eosinophils 0.1 10^3/ul (0-0.6); ABS Lymphocytes 0.5 10^3/ul (1.0-4.8); ABS Monocytes 0.6 10^3/ul (0-0.8); ABS Neutrophils 2.7 10^3/ul (1.5-7.7); Eosinophil % 1.8 %; Lymphocyte % 13.4 %; Nucleated Red Blood Cells % 0.3
[2018-11-19] MEDS: CROMOLYN SODIUM 4% BOTH EYES PRN ×4 (10:31→23:20)
--- NOTE | 2018-11-19 11:01 | PN ---
Subjective Date of Service: 11/19/18 Interval History: Patient has mild abdominal pain which is cramping and "all over." Patient is having loose BMS, but no F/C, N/V, CP, SOB, bleeding, or other pain. Patient is anxious for surgery. Patient as no other complaints. Family History: Unchanged from Admission Social History: Unchanged from Admission Past Medical History: Unchanged from Admission Objective Active Medications: Acetaminophen (Tylenol Tab*) 975 mg PO TID PRN PRN Reason: PAIN Last Admin: 11/18/18 23:29 Dose: 975 mg Brimonidine Tartrate (Alphagan P 0.15%(Nf)) 1 drop RIGHT EYE BID [facility] Last Admin: 11/19/18 07:39 Dose: 1 drop Cetirizine HCl (Zyrtec*) 10 mg PO 2100 [facility] Last Admin: 11/18/18 20:49 Dose: 10 mg Dorzolamide/Timolol (Cosopt (Nf)) 1 drop BOTH EYES BID [facility] Last Admin: 11/19/18 07:39 Dose: 1 drop Fluticasone Propionate (Flonase Nasal [place] 50mcg*) 2 spray BOTH NARES DAILY PRN PRN Reason: CONGESTION Last Admin: 11/17/18 06:52 Dose: 2 spray Potassium Chloride/Sodium Chloride (Ns 0.9% W/ 20 Meq Kcl 1000 Ml*) 1,000 mls @ 100 mls/hr IV PER RATE [facility] Last Admin: 11/19/18 06:54 Dose: 100 mls/hr Lactated Ringer's (Lactated Ringers 1000 Ml Bag*) 1,000 mls @ 125 mls/hr IV PER RATE [facility] Loperamide HCl (Imodium Cap*) 2 mg PO Q2H PRN PRN Reason: DIARRHEA Last Admin: 11/18/18 23:30 Dose: 2 mg Morphine Sulfate (Morphine 4 Mg/Ml Vial (1 Ml)) 2 mg IV Q4H PRN PRN Reason: PAIN SCALE 6-10 Pto: Cromolyn Sodium [Cromolyn Sodium] 4 %) 4 % BOTH EYES QID PRN PRN Reason: ITCHING Last Admin: 11/19/18 10:31 Dose: 4 % Ondansetron HCl (Zofran Inj*) 4 mg IV Q6H PRN PRN Reason: NAUSEA Last Admin: 11/17/18 11:16 Dose: 4 mg Phenobarbital (Phenobarbital Tab(*)) 150 mg PO BEDTIME [facility] Last Admin: 11/18/18 20:48 Dose: 150 mg Pilocarpine HCl (Pilocarpine 4% Opth.Jazlyn*) 1 drop RIGHT EYE QID [facility] Last Admin: 11/19/18 07:40 Dose: 1 drop Pilocarpine HCl (Pilocarpine Tab (Nf)) 7.5 mg PO TID [facility] Last Admin: 11/18/18 20:49 Dose: 7.5 mg Vital Signs - 8 hr 11/19/18 11/19/18 11/19/18 03:15 07:23 07:46 Temperature 97.9 F 98.7 F Pulse Rate 76 76 Respiratory 16 16 16 Rate Blood Pressure 105/58 100/52 (mmHg) O2 Sat by Pulse 97 90 Oximetry Oxygen Devices in Use Now: None Appearance: Patient is a 63yo female who appears stated age, has sturg-wilkins syndrome, and is sitting in the bed in [facility]. Eyes: No Scleral Icterus, PERRLA Ears/Nose/Mouth/Throat: NL Teeth, Lips, Gums, Clear Oropharnyx, Mucous Membranes Moist Neck: NL Appearance and Movements; NL JVP, Trachea Midline Respiratory: Symmetrical Chest Expansion and Respiratory Effort, Clear to Auscultation Cardiovascular: NL Sounds; No Murmurs; No JVD, RRR, No Edema Abdominal: NL Sounds; No Tenderness; No Distention, No Hepatosplenomegaly Lymphatic: No Cervical Adenopathy Extremities: No Edema, No Clubbing, Cyanosis Skin: No Nodules or Sclerosis, - - Hemangiomas sporadically on body. Neurological: Alert and Oriented x 3, NL Sensation, NL Muscle Strength and Tone , - - Strabismus. Result Diagrams: 11/19/18 05:30 11/19/18 05:30 Microbiology and Other Data: Microbiology 11/16/18 01:43 Urine Culture - Final Urine Assess/Plan/Problems-Billing Assessment: Ms. Lebron is a 63 female that presented with abd pain found to have gallstone pancreatitis . Patient is improving pending surgery, hopefully tomorrow. - Patient Problems (1) Pancreatitis Current Visit: Yes Status: Acute Code(s): K85.90 - ACUTE PANCREATITIS WITHOUT NECROSIS OR INFECTION, UNSP SNOMED Code(s): 17012047 Comment: - Abdominal pain almost resolved - LFT's trending down. No EGD needed. Surgery and GI consult appreciated. - Cholecystectomy today with INR 1.2 patient is able to carry out daily activites without the development of chest pain. Her last echo was 2010 which showed EF 55-60 and no wall motion abnormalities. the patient is a acceptable candidate for surgery at this time - no further work up is required (2) Hx of pulmonary embolus Current Visit: Yes Status: Acute Code(s): Z86.711 - PERSONAL HISTORY OF PULMONARY EMBOLISM SNOMED Code(s): 029389693 Comment: - Supratherapeutic on Coumadin. - Reverse and bridge after surgery. (3) Seizures Current Visit: Yes Status: Acute Code(s): R56.9 - UNSPECIFIED CONVULSIONS SNOMED Code(s): 74556262 Comment: - Continue phenobarbital (4) Sturge-Wilkins syndrome with glaucoma Current Visit: No Status: Acute Code(s): Q85.8 - OTHER PHAKOMATOSES, NOT ELSEWHERE CLASSIFIED; H40.9 - UNSPECIFIED GLAUCOMA SNOMED Code(s): 345391273 Comment: - Continue eye drops as perscribed - Seizure Prophylaxis. (5) DVT prophylaxis Current Visit: Yes Status: Acute Code(s): Z29.9 - ENCOUNTER FOR PROPHYLACTIC MEASURES, UNSPECIFIED SNOMED Code(s): 587852854 Comment: - Supratherapeutic on Coumadin. Resume anticoagulation as soon as cleared after surgery. (6) Full code status Current Visit: Yes Status: Acute Code(s): Z78.9 - OTHER SPECIFIED HEALTH STATUS SNOMED Code(s): 060346043 Status and Disposition: Inpatient pending surgery.
[2018-11-19] MEDS: PILOCARPINE 7.5 MG PO SCH ×3 (11:09→23:17)
[2018-11-19] MEDS ORDERED: Lidocaine 2% PF * 5 ML VIAL ONE (19:01)
[2018-11-19] MEDS ORDERED: Cisatracurium* 2 MG/ML MDV 5 ML ONE (19:01)
[2018-11-19] MEDS ORDERED: fentaNYL* 50 MCG/ML 2 ML VIAL (100 MCG VIAL) ONE ×2 (19:01→21:53)
[2018-11-19] MEDS ORDERED: Dexamethasone IV* 4 MG/ML 1 ML (4 MG) ONE (19:01)
[2018-11-19] MEDS ORDERED: Ondansetron INJ* 2 MG/ML VIAL ONE (19:01)
[2018-11-19] MEDS ORDERED: Propofol* 10 MG/ML 20 ML BTL ONE (19:01)
[2018-11-19] MEDS ORDERED: Midazolam* 1 MG/ML 5 ML VIAL (5 MG) ONE (19:02)
[2018-11-19] MEDS ORDERED: ceFAZolin 2 GM in NS PREMIX(*) 2 GM/100 ML BAG IVPB ONE (19:12)
[2018-11-19] MEDS ORDERED: Bupivacaine 0.5% W/EPI SDV* 30 ML VIAL ONE (19:15)
[2018-11-19] MEDS ORDERED: Ketorolac INJ* 30 MG/ML 1 ML VIAL ONE (20:35)
[2018-11-19] MEDS ORDERED: Naloxone* 0.4 MG/ML 1 ML VIAL IV PRN (20:51)
[2018-11-19] MEDS ORDERED: Ondansetron INJ* 2 MG/ML VIAL IV PRN (20:51)
[2018-11-19] MEDS ORDERED: fentaNYL* 50 MCG/ML 2 ML VIAL (100 MCG VIAL) IV PRN (20:51)
[2018-11-19] MEDS ORDERED: Glycopyrrolate IV* 0.2 MG/ML 1 ML VIAL ONE (21:04)
[2018-11-19] MEDS ORDERED: Neostigmine Methylsulfate* 1 MG/ML 10 ML VIAL (1 mg/ml) ONE (21:04)
--- NOTE | 2018-11-19 21:06 | BRIEFOPN ---
Brief Operative Note - Surgery Procedures: Procedures Pre-OP Diagnoses: gallstone cholecystitis Post-op Diagnosis: same Procedure: Laparoscopic cholecystectomy Surgeon: Dulce Asst: Susan Anethesia: WILLI EBL: 50cc IVF: 1600ccLR Specimen: gallbladder Drains: none
--- NOTE | 2018-11-19 21:36 | PN ---
AMENDED REPORT NOW INCLUDES DATE OF VISIT CC: [facility]; Primary care doctor * PROGRESS NOTE: DATE OF VISIT: 11/19/18 HISTORY: Ms. Lebron was seen in the preoperative area, case was discussed on multiple episodes both me and the mid level as well as the hospitalist service. Plan was for laparoscopic cholecystectomy for diagnosis of gallstone pancreatitis yesterday, but due to the patient's elevated INR, we postponed it today. The patient underwent an INR this morning, which is 1.2. She states that she is no longer having any pain. I outlined the process that got her hospitalized and our working diagnosis of gallstone pancreatitis. I have recommended laparoscopic cholecystectomy. The patient wished to proceed. PHYSICAL EXAMINATION: The patient was afebrile. Vital signs were stable. Abdomen is soft, nondistended, obese with no masses or hernias. Well-healed lower incision appreciated. Labs reviewed. Ultrasound and CAT scan reviewed. IMPRESSION: Gallstone pancreatitis, resolving. PLAN: Laparoscopic cholecystectomy. I outlined the details of the procedure going over the risks, benefits, and alternatives and the patient wishes to proceed. We spoke about possible complications, which include, but not limited to bleeding, infection, bile leak, common bile duct or bowel injury, need for additional procedures, need for open procedures. The patient's questions answered and she is scheduled for surgery. She will be going to the OR at this time. She will likely to be discharged to home tomorrow. [id number]/[facility] #: [id number] MTDD
--- NOTE | 2018-11-19 22:18 | OP ---
CC: [facility]; Primary care doctor. OPERATIVE REPORT: DATE OF OPERATION: 11/19/18 DATE OF : 53 SURGEON: Berto Cardona MD HYDRAULIC LIFT OPERATOR: Dr. Davis. ANESTHESIOLOGIST: Dr. Mejía. ANESTHESIA: General anesthesia. PRE-OP DIAGNOSIS: Gallstone pancreatitis. POST-OP DIAGNOSIS: Gallstone pancreatitis. OPERATIVE PROCEDURE: Laparoscopic cholecystectomy. BLOOD LOSS: Less than 50 cc. CRYSTALLOID FLUID: Less than 2 L. SPECIMENS: Gallbladder. COUNTS: Lap, pad, and instrument count correct at the end of the procedure. DRAINS: None. DESCRIPTION OF PROCEDURE: The patient was identified in the preoperative area. Marked consent was si gned. I discussed the case with her and her family member. She was marked and taken to the operating room and placed on the operating room table in a supine position. Preoperative antibiotics were giv en. Sequential devices were placed on bilateral lower extremities. General anesthesia was induced. The patient's abdomen was prepped and draped in a standard surgical fashion. Time-out was performed . An incision was made at 2 fingerbreadths below the costal margin in the mid clavicular line. It was d eepened down to the anterior fascia which was elevated and the Veress needle inserted into the abdomi nal cavity which was then allowed to insufflate to a pressure of 15 mmHg. The patient tolerated the insufflation well. The Veress needle was removed and an optical trocar was inserted through this righ t upper quadrant incision. Review of the abdomen showed normal appearing bowel, omentum, as well as a large gallbladder. There was a scant fluid above the liver. Digital troc was then placed in the following position at 5 mm at the umbilicus and 12 mm at subxipho id and a 5 mm in a right lateral site. Table was repositioned. Gallbladder was elevated above the liver and the infundibular region was ret racted towards the right lower quadrant. This exposed the triangle of Calot. We then took the perit oneum off the lateral aspect of the gallbladder and then off the medial aspect. The cystic duct was isolated as was the cystic artery. They were both doubly clipped and ligated and the gallbladder was removed from the liver bed. The peritoneum on the lateral side showed some oozing. We dissected ar ound this area and now placed a clip for hemostasis. When the gallbladder was removed entirely. We cauterized the gallbladder fossa where there had been oozing. Hemostasis was excellent. We then utilized gauze to absorb some of the blood that we had se en and used the gauze to ensure that there was no active bleeding from the gallbladder fossa. Cystic duct stump and cystic artery stump appeared intact without any bleeding or bile leakage. The tail was repositioned back to neutral. The gauze was removed and then the gallbladder was remove d using an endoscopic retrieval bag through the subxiphoid incision. We did have to open up the gall bladder to remove significant amount of stones. Before we get the gallbladder out of the abdomen, we also did have to gently dilate the incision to allow for this to be removed. It was removed in its entirety and passed off as specimen. We irrigated the wound. We then insufflated the abdomen again and placed the scope and looked at the gallbladder fossa. There was no bleeding. Then, this was whe n we allowed the abdomen to collapse. Trocars were completely removed and all 4 skin incisions were reapproximated with 4-0 Monocryl subcuticular sutures followed by Steri-Strips and sterile dressing. [id number]/[facility] #: [id number]
[2018-11-19] MEDS: Cetirizine* 10 MG TAB PO SCH (23:16)
[2018-11-19] MEDS: PHENobarbital TAB(*) 100 MG PO SCH (23:17)
[2018-11-19] MEDS: Lactated Ringers 1000 ML Bag* 1,000 ML IV SCH (23:22)
[2018-11-20 05:20] LABS: Hematocrit 34 % (35-47); Hemoglobin 11.3 g/dL (12.0-16.0); Mean Corpuscular HGB Conc 33 g/dL (31-36); Mean Corpuscular Hemoglobin 33 pg (27-31); Mean Corpuscular Volume 99 fL (80-97); Mean Platelet Volume 7.9 fL (7.4-10.4); Platelet Count 188 10^3/uL (150-450); Red Blood Count 3.47 10^6 /uL (3.70-4.87); Red Cell Distribution Width 16 % (10-15); White Blood Count 5.3 10^3/uL (3.5-10.8)
[2018-11-20 05:37] LABS: Albumin 3.3 g/dL (3.2-5.2); Albumin/Globulin Ratio 1.2 (1-3); BUN/Creatinine Ratio 6.8 (8-20); Calcium 8.1 mg/dL (8.6-10.3); EGFR African American 174.2 (>60); Globulin 2.8 g/dL (2-4); Potassium 3.6 mmol/L (3.5-5.0); Total Bilirubin 0.3 mg/dL (0.2-1.0); Total Protein 6.1 g/dL (6.4-8.9)
[2018-11-20 06:03] LABS: ABS Lymphocytes 0.5 10^3/ul (1.0-4.8); ABS Monocytes 0.6 10^3/ul (0-0.8); ABS Neutrophils 4.2 10^3/ul (1.5-7.7); Lymphocyte % 9.2 %; Nucleated Red Blood Cells % 0.1
[2018-11-20] MEDS: Lactated Ringers 1000 ML Bag* 1,000 ML IV SCH (07:50)
[2018-11-20] MEDS: PILOCARPINE 7.5 MG PO SCH ×3 (07:55→20:44)
[2018-11-20] MEDS: Acetaminophen TAB* 325 MG PO PRN ×2 (07:55→18:19)
[2018-11-20] MEDS: PTO:Dorzolamide/Timolol OPTH (NF) 10 ML BOT BOTH EYES SCH ×2 (07:56→20:46)
[2018-11-20] MEDS: PILOCARPINE 4% RIGHT EYE SCH ×4 (07:56→20:48)
[2018-11-20] MEDS: CMCS:Brimonidine P 0.15%(NF) OPH SOL 5 ML BTL RIGHT EYE SCH ×2 (07:56→20:46)
[2018-11-20] MEDS: Enoxaparin(*) 80 MG/0.8 ML SYR SUBCUT SCH ×2 (09:42→20:45)
[2018-11-20] MEDS ORDERED: NS 0.9% 500 ML* 500 ML IV ONE (10:10)
--- NOTE | 2018-11-20 12:25 | PN ---
Progress Note - Progress Note Date of Service: 11/20/18 SOAP: Subjective: Pt seen and examined. Feeling well. No nausea. appetite Objective: af vss abdo: soft/ obese/ NT dressing intact labs noted Assessment: POD1 lap osvaldo; HD stable] Plan: p;jannie pe hosptitalist will follow and remove dressing tomorrow
--- NOTE | 2018-11-20 13:51 | PN ---
Subjective Date of Service: 11/20/18 Interval History: Patient has minor pain in abdomen, worse with breathing. Patient denies F/C, N/V , CP, SOB, Palpitations, dizziness, or other pain. Patient very anxious to walk around unit. Patient states she does not have someone to help her with medications at home today and has poor comprehension of what is needed from her for anticoagulation. Family History: Unchanged from Admission Social History: Unchanged from Admission Past Medical History: Unchanged from Admission Objective Active Medications: Acetaminophen (Tylenol Tab*) 975 mg PO TID PRN PRN Reason: PAIN Last Admin: 11/20/18 07:55 Dose: 975 mg Brimonidine Tartrate (Alphagan P 0.15%(Nf)) 1 drop RIGHT EYE BID [facility] Last Admin: 11/20/18 07:56 Dose: 1 drop Cetirizine HCl (Zyrtec*) 10 mg PO 2100 [facility] Last Admin: 11/19/18 23:16 Dose: 10 mg Dorzolamide/Timolol (Cosopt (Nf)) 1 drop BOTH EYES BID [facility] Last Admin: 11/20/18 07:56 Dose: 1 drop Enoxaparin Sodium (Lovenox(*)) 80 mg SUBCUT Q12H [facility] Last Admin: 11/20/18 09:42 Dose: 80 mg Fluticasone Propionate (Flonase Nasal [place] 50mcg*) 2 spray BOTH NARES DAILY PRN PRN Reason: CONGESTION Last Admin: 11/17/18 06:52 Dose: 2 spray Lactated Ringer's (Lactated Ringers 1000 Ml Bag*) 1,000 mls @ 125 mls/hr IV PER RATE [facility] Last Admin: 11/20/18 07:50 Dose: 125 mls/hr Loperamide HCl (Imodium Cap*) 2 mg PO Q2H PRN PRN Reason: DIARRHEA Last Admin: 11/18/18 23:30 Dose: 2 mg Morphine Sulfate (Morphine 4 Mg/Ml Vial (1 Ml)) 2 mg IV Q4H PRN PRN Reason: PAIN SCALE 6-10 Pto: Cromolyn Sodium [Cromolyn Sodium] 4 %) 4 % BOTH EYES QID PRN PRN Reason: ITCHING Last Admin: 11/19/18 23:20 Dose: 4 % Ondansetron HCl (Zofran Inj*) 4 mg IV Q6H PRN PRN Reason: NAUSEA Last Admin: 11/17/18 11:16 Dose: 4 mg Phenobarbital (Phenobarbital Tab(*)) 150 mg PO BEDTIME [facility] Last Admin: 11/19/18 23:17 Dose: 150 mg Pilocarpine HCl (Pilocarpine 4% Opth.Jazlyn*) 1 drop RIGHT EYE QID [facility] Last Admin: 11/20/18 12:45 Dose: 1 drop Pilocarpine HCl (Pilocarpine Tab (Nf)) 7.5 mg PO TID [facility] Last Admin: 11/20/18 12:45 Dose: 7.5 mg Warfarin Sodium (Coumadin Tab(*)) 5 mg PO SuTuThSa@1700 RICH; Protocol Warfarin Sodium (Coumadin Tab(*)) 10 mg PO MoWeFr@1700 RICH; Protocol Vital Signs - 8 hr 11/20/18 11/20/18 11/20/18 08:00 09:04 10:11 Temperature 97.9 F Pulse Rate 79 Respiratory 20 16 Rate Blood Pressure 90/55 82/40 (mmHg) O2 Sat by Pulse 93 93 Oximetry 11/20/18 11:15 Temperature 97.3 F Pulse Rate 72 Respiratory 20 Rate Blood Pressure 111/91 (mmHg) O2 Sat by Pulse 96 Oximetry Oxygen Devices in Use Now: None Appearance: Patient is a 63yo female with Sturg-Hughes syndrome and is sitting in the bed in [facility]. Eyes: No Scleral Icterus, PERRLA Ears/Nose/Mouth/Throat: NL Teeth, Lips, Gums, Clear Oropharnyx, Mucous Membranes Moist Neck: NL Appearance and Movements; NL JVP, Trachea Midline Respiratory: Symmetrical Chest Expansion and Respiratory Effort, Clear to Auscultation Cardiovascular: NL Sounds; No Murmurs; No JVD, RRR Abdominal: - - Laproscopic incisions covered with gauze and tape. Lymphatic: No Cervical Adenopathy Extremities: No Edema, No Clubbing, Cyanosis Skin: No Nodules or Sclerosis, - - Widespread Hemangiomas. Neurological: Alert and Oriented x 3, NL Sensation, NL Muscle Strength and Tone , - - CN II-XII intact. Result Diagrams: 11/20/18 05:07 11/20/18 05:07 Microbiology and Other Data: Microbiology 11/16/18 01:43 Urine Culture - Final Urine Assess/Plan/Problems-Billing Assessment: Ms. Lebron is a 63 female that presented with abd pain found to have gallstone pancreatitis . Patient is improving pending surgery, hopefully tomorrow. - Patient Problems (1) Pancreatitis Current Visit: Yes Status: Acute Code(s): K85.90 - ACUTE PANCREATITIS WITHOUT NECROSIS OR INFECTION, UNSP SNOMED Code(s): 14941597 Comment: - Minimal abdominal pain after Quin. - Surgery and GI consult appreciated. - S/P Cholecystectomy (2) Hx of pulmonary embolus Current Visit: Yes Status: Acute Code(s): Z86.711 - PERSONAL HISTORY OF PULMONARY EMBOLISM SNOMED Code(s): 724478974 Comment: - Coumadin Reversed, resume today. - Bridge with Full Dose Lovenox, needs close F/U. (3) Seizures Current Visit: Yes Status: Acute Code(s): R56.9 - UNSPECIFIED CONVULSIONS SNOMED Code(s): 89644652 Comment: - Continue phenobarbital (4) Sturge-Hughes syndrome with glaucoma Current Visit: No Status: Acute Code(s): Q85.8 - OTHER PHAKOMATOSES, NOT ELSEWHERE CLASSIFIED; H40.9 - UNSPECIFIED GLAUCOMA SNOMED Code(s): 359929048 Comment: - Continue eye drops as perscribed - Seizure Prophylaxis. (5) DVT prophylaxis Current Visit: Yes Status: Acute Code(s): Z29.9 - ENCOUNTER FOR PROPHYLACTIC MEASURES, UNSPECIFIED SNOMED Code(s): 488639424 Comment: - Full dose Lovenox to Coumadin. (6) Full code status Current Visit: Yes Status: Acute Code(s): Z78.9 - OTHER SPECIFIED HEALTH STATUS SNOMED Code(s): 221324991 Status and Disposition: Inpatient, Hopeful D/C tomorrow when appropriate support is available at home.
[2018-11-20] MEDS: CROMOLYN SODIUM 4% BOTH EYES PRN ×2 (18:11→20:49)
[2018-11-20] MEDS: Warfarin TAB(*) 5 MG PO SCH (18:13)
[2018-11-20] MEDS: PHENobarbital TAB(*) 100 MG PO SCH (20:42)
[2018-11-20] MEDS: Cetirizine* 10 MG TAB PO SCH (20:43)
--- NOTE | 2018-11-20 21:10 | PN ---
Hospitalist Progress Note Date of Service: 11/20/18 63 F [facility], admitted with gallstone panc s/p osvaldo POD1 on 11/20. Called to bedside to evaluate non pitting edema in L hand. Majority of edema to dorsum of hand, no erythema, no tenderness, pulses intact, excellent cap refill , warm and well perfused. Appears to be dependent unilateral edema- fluid related, recommended elevation this evening, could consider DENISE wraps tomorrow if no improvement, monitor on PE and determine if further testing needed, already therapeutically anticoagulated and utility of US is low.
[2018-11-21 06:29] LABS: Hematocrit 33 % (35-47); Hemoglobin 11.3 g/dL (12.0-16.0); Mean Corpuscular HGB Conc 34 g/dL (31-36); Mean Corpuscular Hemoglobin 33 pg (27-31); Mean Corpuscular Volume 98 fL (80-97); Platelet Count 193 10^3/uL (150-450); Red Blood Count 3.37 10^6 /uL (3.70-4.87); Red Cell Distribution Width 16 % (10-15); White Blood Count 4.5 10^3/uL (3.5-10.8)
[2018-11-21 06:38] LABS: INR 1.01 (0.82-1.09)
[2018-11-21 06:58] LABS: Calcium 7.8 mg/dL (8.6-10.3); EGFR African American 165.5 (>60); EGFR Non-African American 136.8 (>60); Potassium 3.7 mmol/L (3.5-5.0)
[2018-11-21 07:12] LABS: ABS Eosinophils 0.2 10^3/ul (0-0.6); ABS Lymphocytes 0.9 10^3/ul (1.0-4.8); ABS Monocytes 0.6 10^3/ul (0-0.8); ABS Neutrophils 2.8 10^3/ul (1.5-7.7); Eosinophil % 3.4 %; Lymphocyte % 18.9 %; Nucleated Red Blood Cells % 0.1
[2018-11-21] MEDS: PILOCARPINE 4% RIGHT EYE SCH ×4 (08:07→20:05)
[2018-11-21] MEDS: CMCS:Brimonidine P 0.15%(NF) OPH SOL 5 ML BTL RIGHT EYE SCH ×2 (08:07→20:05)
[2018-11-21] MEDS: PTO:Dorzolamide/Timolol OPTH (NF) 10 ML BOT BOTH EYES SCH ×2 (08:07→20:04)
[2018-11-21] MEDS: CROMOLYN SODIUM 4% BOTH EYES PRN ×4 (08:08→20:04)
[2018-11-21] MEDS: PILOCARPINE 7.5 MG PO SCH ×3 (08:11→20:02)
[2018-11-21] MEDS: Enoxaparin(*) 80 MG/0.8 ML SYR SUBCUT SCH ×2 (10:57→20:01)
--- NOTE | 2018-11-21 11:24 | PN ---
Progress Note - Progress Note Date of Service: 11/21/18 SOAP: Subjective: doing well Objective: af vss abdo: soft/ incisional tenderness dressing removed, steri-strips in place no redness Assessment: POD 2 [facility] Plan: d/c home on oral narcotics f/u in surgery office d/c per hospitalist
[2018-11-21 13:59] LABS: Albumin 3.2 g/dL (3.2-5.2); Indirect Bilirubin 0.2 mg/dL (0.3-1.0); Total Bilirubin 0.3 mg/dL (0.2-1.0)
[2018-11-21 14:04] LABS: Albumin/Globulin Ratio 1.2 (1-3); Globulin 2.6 g/dL (2-4); Total Protein 5.8 g/dL (6.4-8.9)
[2018-11-21] MEDS: Warfarin TAB(*) 5 MG PO SCH (17:49)
--- NOTE | 2018-11-21 18:17 | PN ---
Subjective Date of Service: 11/21/18 Interval History: Patient continues to express confusion about lovenox and coumadin regimen, discussed further. Patient is poor historian, unsure when uterine CA treatment completed and unsure when diagnosed with PE. Patient's [id number] has doubts that patient will remember to administer lovenox at appropriate times. Continues to have left UE swelling, appears beyond dorsum of hand, despite elevation. Patient denies abd pain at rest, nausea/vomiting, chest pain, difficulty breathing, fever/chills. Reports abd pain at incision site with change in position. Family History: Unchanged from Admission Social History: Unchanged from Admission Past Medical History: Unchanged from Admission Objective Active Medications: Acetaminophen (Tylenol Tab*) 975 mg PO TID PRN PRN Reason: PAIN Last Admin: 11/20/18 18:19 Dose: 975 mg Brimonidine Tartrate (Alphagan P 0.15%(Nf)) 1 drop RIGHT EYE BID [facility] Last Admin: 11/21/18 08:07 Dose: 1 drop Cetirizine HCl (Zyrtec*) 10 mg PO 2100 [facility] Last Admin: 11/20/18 20:43 Dose: 10 mg Dorzolamide/Timolol (Cosopt (Nf)) 1 drop BOTH EYES BID [facility] Last Admin: 11/21/18 08:07 Dose: 1 drop Enoxaparin Sodium (Lovenox(*)) 80 mg SUBCUT Q12H [facility] Last Admin: 11/21/18 10:57 Dose: 80 mg Fluticasone Propionate (Flonase Nasal [place] 50mcg*) 2 spray BOTH NARES DAILY PRN PRN Reason: CONGESTION Last Admin: 11/17/18 06:52 Dose: 2 spray Heparin Sodium (Porcine) (Heparin Flush Port (Ivad)) 5 ml FLUSH DAILY [facility]; Protocol Last Admin: 11/21/18 10:56 Dose: 5 ml Loperamide HCl (Imodium Cap*) 2 mg PO Q2H PRN PRN Reason: DIARRHEA Last Admin: 11/18/18 23:30 Dose: 2 mg Morphine Sulfate (Morphine 4 Mg/Ml Vial (1 Ml)) 2 mg IV Q4H PRN PRN Reason: PAIN SCALE 6-10 Last Admin: 11/21/18 07:15 Dose: 2 mg Pto: Cromolyn Sodium [Cromolyn Sodium] 4 %) 4 % BOTH EYES QID PRN PRN Reason: ITCHING Last Admin: 11/21/18 17:49 Dose: 4 % Ondansetron HCl (Zofran Inj*) 4 mg IV Q6H PRN PRN Reason: NAUSEA Last Admin: 11/17/18 11:16 Dose: 4 mg Phenobarbital (Phenobarbital Tab(*)) 150 mg PO BEDTIME [facility] Last Admin: 11/20/18 20:42 Dose: 150 mg Pilocarpine HCl (Pilocarpine 4% Opth.Jazlyn*) 1 drop RIGHT EYE QID [facility] Last Admin: 11/21/18 17:49 Dose: 1 drop Pilocarpine HCl (Pilocarpine Tab (Nf)) 7.5 mg PO TID [facility] Last Admin: 11/21/18 12:39 Dose: 7.5 mg Warfarin Sodium (Coumadin Tab(*)) 5 mg PO SuTuThSa@1700 RICH; Protocol Last Admin: 11/21/18 17:49 Dose: 5 mg Warfarin Sodium (Coumadin Tab(*)) 10 mg PO MoWeFr@1700 RICH; Protocol Vital Signs - 8 hr 11/21/18 11/21/18 11:15 14:04 Temperature 97.7 F Pulse Rate 77 Respiratory 18 Rate Blood Pressure 95/57 (mmHg) O2 Sat by Pulse 90 90 Oximetry Oxygen Devices in Use Now: None Appearance: Obese white female sitting upright in hospital bed appearing in NAD Eyes: No Scleral Icterus, PERRLA Ears/Nose/Mouth/Throat: Mucous Membranes Moist Neck: NL Appearance and Movements; NL JVP Respiratory: Symmetrical Chest Expansion and Respiratory Effort, Clear to Auscultation Cardiovascular: NL Sounds; No Murmurs; No JVD, RRR Abdominal: - - abdomen soft, nontender, nondistended; small incisions consistent with laparoscopy intact and clean Extremities: No Clubbing, Cyanosis, - - Nonpitting trace edema from elbow to hand on left side Skin: - - port-wine throughout majority of right aspect of face Neurological: Alert and Oriented x 3, NL Muscle Strength and Tone Result Diagrams: 11/21/18 06:19 11/21/18 06:19 Microbiology and Other Data: Microbiology 11/16/18 01:43 Urine Culture - Final Urine Assess/Plan/Problems-Billing Assessment: Ms. Lebron is a 63 female that presented with abd pain found to have gallstone pancreatitis . Patient is s/p lap osvaldo on 11/19 and continuing to improve. - Patient Problems (1) Pancreatitis Current Visit: Yes Status: Acute Code(s): K85.90 - ACUTE PANCREATITIS WITHOUT NECROSIS OR INFECTION, UNSP SNOMED Code(s): 01122510 Comment: - secondary to gallstones - Surgery and GI consult appreciated. - S/P Cholecystectomy on 11/19, minimal abdominal pain only with position changes - transaminases downtrending (2) Left arm swelling Current Visit: Yes Status: Acute Code(s): M79.89 - OTHER SPECIFIED SOFT TISSUE DISORDERS SNOMED Code(s): 035879468 Comment: -left arm swelling today appears beyond left dorsum of hand -patient receiving IVF via mediport, therefore not due to IV access -given hx of PE and unsure of history of hypercoagulability, obtained doppler LUE -doppler negative for DVT LUE -continue elevation and nellie wraps -appears patient has had mediport since cancer treatment, would benefit from outpatient follow up for removal (3) Hx of pulmonary embolus Current Visit: Yes Status: Acute Code(s): Z86.711 - PERSONAL HISTORY OF PULMONARY EMBOLISM SNOMED Code(s): 760078251 Comment: - Coumadin reversed for surgery, restarted yesterday - Bridge with full dose lovenox - INR remains subtherapeutic today - Patient unable to be trained on lovenox dosing until later this evening and patient seems to be unreliable for dosing at home; setting up VNS to see patient at home tomorrow and patient's [id number] will remind patient (4) Seizures Current Visit: Yes Status: Acute Code(s): R56.9 - UNSPECIFIED CONVULSIONS SNOMED Code(s): 55602133 Comment: - Continue phenobarbital (5) Sturge-Hughes syndrome with glaucoma Current Visit: No Status: Acute Code(s): Q85.8 - OTHER PHAKOMATOSES, NOT ELSEWHERE CLASSIFIED; H40.9 - UNSPECIFIED GLAUCOMA SNOMED Code(s): 124187162 Comment: - Continue eye drops as perscribed - Seizure Prophylaxis (6) DVT prophylaxis Current Visit: Yes Status: Acute Code(s): Z29.9 - ENCOUNTER FOR PROPHYLACTIC MEASURES, UNSPECIFIED SNOMED Code(s): 904359250 Comment: - Full dose lovenox to coumadin (7) Full code status Current Visit: Yes Status: Acute Code(s): Z78.9 - OTHER SPECIFIED HEALTH STATUS SNOMED Code(s): 813704091 Status and Disposition: Inpatient, will D/C tomorrow when appropriate support is available at home.
[2018-11-21] MEDS: Cetirizine* 10 MG TAB PO SCH (20:02)
[2018-11-21] MEDS: PHENobarbital TAB(*) 100 MG PO SCH (20:02)
[2018-11-22 07:50] LABS: INR 1.07 (0.82-1.09)
[2018-11-22] MEDS: Enoxaparin(*) 80 MG/0.8 ML SYR SUBCUT SCH (09:26)
[2018-11-22] MEDS: PILOCARPINE 7.5 MG PO SCH ×2 (09:32→12:21)
[2018-11-22] MEDS: CROMOLYN SODIUM 4% BOTH EYES PRN (09:33)
[2018-11-22] MEDS: PTO:Dorzolamide/Timolol OPTH (NF) 10 ML BOT BOTH EYES SCH (09:33)
[2018-11-22] MEDS: CMCS:Brimonidine P 0.15%(NF) OPH SOL 5 ML BTL RIGHT EYE SCH (09:33)
[2018-11-22] MEDS: PILOCARPINE 4% RIGHT EYE SCH ×2 (09:33→12:21)
[2018-11-22 12:59] VITALS: BP 100/62
[2018-11-22] MEDS ORDERED: Warfarin TAB(*) 10 MG PO SCH (17:00)
--- NOTE | 2018-11-22 23:25 | DS ---
CC: Dr. Bailon; Dr. Cardona; Dr. Thomas * DISCHARGE SUMMARY: DATE OF ADMISSION: 11/16/18 DATE OF DISCHARGE: 11/22/18 PRIMARY CARE PROVIDER: Dr. Thomas. ATTENDING PHYSICIAN: Dr. Carol Pierre * (dictated by SKY Michael). CONSULTING MENTAL HEALTH PROGRAM MANAGER: Dr. Bailon. CONSULTING GENERAL SURGEON: Dr. Cardona. PRIMARY DIAGNOSIS: Gallstone pancreatitis. SECONDARY DIAGNOSES: 1. 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 2. Seizure disorder. 3. Sturge-Hughes syndrome. 4. History of uterine cancer, in remission. 5. History of pulmonary embolism, on chronic anticoagulation. 6. Hyperlipidemia. 7. Dry mouth. PROCEDURES WHILE IN THE HOSPITAL: Laparoscopic cholecystectomy on 11/19/[address] Cardona. STUDIES WHILE IN THE HOSPITAL: Left upper extremity Doppler on 11/21/18, negative for DVT. Abdomen ultrasound on 11/16/18, multiple gallstones and borderline prominences, common bile duct. Abdomen and pelvis CT on 11/26/18: 1. Cholelithiasis. 2. Demineralization appearance of bones and increased linear sclerosis on both sides of the sacrum lateral to the neural foramina which may represent sacral insufficiency fractures. 3. Duodenal diverticulosis without evidence of diverticulitis. 4. Trace amount of free fluid in the right lower quadrant of the abdomen and right side of the pelvis. PERTINENT LABORATORY DATA: INR on date of discharge 1.17. On 11/21/18, AST 48 , ALT 70, alk phos 124, total bili 0.30. Lipase at admission 4898. HISTORY OF PRESENT ILLNESS/HOSPITAL COURSE: Jennifer Lebron is a 63-year-old white female with past medical history significant for Sturge-Hughes syndrome; history of uterine cancer; history of pulmonary embolism, on chronic anticoagulation; history of seizure disorder, who presented to the emergency department on 11/16/18 with epigastric abdominal pain that radiates to her back x1 day. Please see further information on admitting history and physical dictated by Dr. Rian Awad on 11/16/18. She was found to have pancreatitis secondary to gallstones. During her hospital stay, as her symptomatology of a pancreatitis improved, the plan was for laparoscopic cholecystectomy. There were no obstructing stones at the time of evaluation per Dr. Bailon. Due to the patient's supratherapeutic INR preventing surgery, she was given vitamin K for reversal and laparoscopic cholecystectomy was then performed on 11/19/18. The patient has had good control of her pain during this time and frequently requiring opiates. She has had flatus and bowel movement. On date of discharge , the patient has not had a bowel movement, but is having flatus and did have a bowel movement the day prior to discharge. Denies abdominal pain. Denies fever , chills, nausea, vomiting, difficulty breathing or chest pain. There is extensive discussion with the patient for education regarding her Lovenox shots to bridge the Coumadin and it was explained by myself, nursing and by SKY Yanez, who was previously caring for the patient. Additionally, the patient was educated regarding her Lovenox shots in the presence of her sister- in-law. Prior to discharge, the patient was having left lower extremity edema which was not resolving elevation or Ignacio wraps and therefore, given the patient' s history of PE, DVT was of concern, but this is effectively ruled out with Doppler. The patient was kept with seizure precautions during the hospital stay due to her history of seizure disorder. PHYSICAL EXAMINATION: Obese white female, sitting upright in hospital bed, appearing in no acute distress. Skin: Port-wine stain throughout right half of face and to left cheek and disseminated through chest and right arm. Skin otherwise warm, dry and intact. Head: Normocephalic, atraumatic. Eyes: PERRL. Sclerae anicteric. ENT: Mucous membranes moist. Lower lip hypertrophic. Neck: Supple without JVD. Lungs: Clear to auscultation throughout. Cardio: Regular rate and rhythm without murmurs, rubs, or gallops. Abdomen: Laparoscopic incisions are clean and dry. Abdomen is tender only at sites of incision and otherwise nontender, soft with normoactive bowel sounds. Extremities: No clubbing, cyanosis, or edema. Neuro: The patient is alert and oriented x3 with no focal deficits. DISCHARGE PLAN: DIET: The patient is to follow low fat diet for 4 to 6 weeks. ACTIVITY: No lifting greater than 10 pounds for 1 week. Otherwise, may return to normal activity as tolerated. The patient was advised to return to the emergency department if she is experiencing worsened abdominal pain, fever, chills, vomiting that is intractable and unable to keep down fluids, shortness of breath, or chest pain. The patient was thoroughly educated regarding her continuation of her Lovenox shots while she is bridging to Coumadin. She is advised to call her primary care provider's office today or tomorrow to schedule very close followup regarding her INR rechecks. Additionally, Dr. Thomas's office was contacted. The patient was additionally advised to have a followup appointment within 7 to 10 days regarding this hospitalization and she also has a followup appointment on 11/26/[address] Cardona for followup regarding her cholecystectomy. During her hospital stay, I attempted to contact Dr. Thomas's office regarding the long-term use of her Coumadin. It was undetermined whether there was hypercoagulable history. It is unclear if the patient's PE was occurring during the setting of her cancer and would therefore be an unprovoked PE; however, it is unclear whether she has had more PE since this time. If this is her only isolated PTE and it occurred in 2010 and it also occurred before, then continuation of Coumadin would be not needed; however, it was unclear at the time of discharge and is recommended followup with primary care. The patient's [id number] was utilizing discharge planning and is in agreement to call the patient in the morning and evening to remind her of her Lovenox shots and visiting nurses services also involved to have further education in the home regarding her Lovenox shots while she is bridging to Coumadin. The patient was provided with 4 day supply of oxycodone for severe abdominal pain, [facility] [id number]. DISCHARGE MEDICATIONS: 1. Oxycodone 10 mg p.o. q.6 hours p.r.n. severe abdominal pain, maximum daily dose 4 tabs. 2. Lovenox 80 mg subcu q.12 hours until INR therapeutic. Continued home medications: 1. Coumadin 5 mg Thursday, , Thursday, and Thursday. 2. Coumadin 10 mg Thursday, Thursday and Thursday. 3. Cosopt 1 drop both eyes b.i.d. 4. Pilocarpine 1 drop right eye 4 times a day. 5. Cromolyn sodium 4% both eyes 4 times a day p.r.n. 6. Lipitor 40 mg p.o. daily. 7. Brimonidine 1 drop right eye b.i.d. 8. Tylenol 1000 mg p.o. b.i.d. p.r.n. pain. 9. Pilocarpine tab 7.5 mg p.o. t.i.d. 10. Phenobarbital 150 mg p.o. at bedtime. CONDITION ON DISCHARGE: Stable. DISPOSITION: Home. TIME SPENT: Approximately 40 minutes was spent on this discharge; approximately half this time was spent with the patient and coordinating care. SKY MICHAEL [id number]/[facility] #: [id number] MTDD
== END 2018-11-22 13:15 | disposition home health service (06) | DRG 418 ==
LOC: ED 23:28 → MEDTELE 11-16 04:38 → MED 11-20 17:52
PROVIDERS: ADMIT Internal Medicine; ATTEND Internal Medicine
PROC: 0FT44ZZ Resection of Gallbladder, Percutaneous Endoscopic Approach (ICD-10-PCS; principal; 2018-11-19 17:00)
DX: K85.10 Biliary acute pancreatitis without necrosis or infection (principal); Q85.8 Other phakomatoses, not elsewhere classified; H40.9 Unspecified glaucoma; G40.909 Epilepsy, unspecified, not intractable, without status epilepticus; E78.5 Hyperlipidemia, unspecified; R68.2 Dry mouth, unspecified; K80.20 Calculus of gallbladder without cholecystitis without obstruction; K57.10 Diverticulosis of small intestine without perforation or abscess without bleeding; R79.1 Abnormal coagulation profile; R60.0 Localized edema; M79.89 Other specified soft tissue disorders; H54.40 Blindness, one eye, unspecified eye; E66.9 Obesity, unspecified; Z79.01 Long term (current) use of anticoagulants; Z86.711 Personal history of pulmonary embolism; Z68.33 Body mass index [BMI] 33.0-33.9, adult; Z85.42 Personal history of malignant neoplasm of other parts of uterus; Z79.84 Long term (current) use of oral hypoglycemic drugs; Z79.899 Other long term (current) drug therapy; Z88.8 Allergy status to other drugs, medicaments and biological substances; Z80.1 Family history of malignant neoplasm of trachea, bronchus and lung
CPT/HCPCS: 36415; 74177; 76700; 80048; 80053; 80061; 80076; 80184; 81003; 81015; 82150; 83605; 83690; 84484; 85025; 85027; 85060; 85610; 86140; 86850; 86900; 86901; 87086; 88304; 93005; 99284; A9270-GY; J0690; J1100; J1642; J1644; J1650; J1885; J2250; J2270; J2405; J2704; J2710; J3010; Q9967

== ENCOUNTER 2019-01-11 10:45 | Emergency (ER) | payer MEDICARE ==
--- NOTE | 2019-01-11 11:42 | ED ---
Neurological HPI - HPI Summary HPI Summary: This patient is a 63 year old F presenting to [facility] by EMS with a chief complaint of seizure occurring [employer]NAG[employer]IST. Pt has epilepsy. She reports she was walking up to the dentist and was up by [employer], when it occurred. Pt lost consciousness and woke up in ambulance. Sometimes seizures occur and she doesnt know it. The last seizure she remembers was in the summer, 2018. Her typical seizure includes losing consciousness, shaking, numbness, heaviness, and tightness in left side. Pt is oriented x3. Pt is on medication for seizures. Per chart review, Pt was seen on 05/07/18 for seizure with subsequent left sided weakness. Patients neurologist is Dr. Crockett. Pt has no HTN, diabetes, or heart conditions. Pt has PMHx of heart murmur. Pt does not use alcohol, or drugs. Medications reviewed. Allergies noted - History of Current Complaint Chief Complaint: EDSeizure Stated Complaint: SEIZURE PER EMS Time Seen by Provider: 01/11/19 11:24 Hx Obtained From: Patient Onset/Duration: Sudden Onset, Resolved Timing: Intermittent Episodes Lasting: Current Severity: None Number of Seizures: 1 Pain Intensity: 0 Pain Scale Used: 0-10 Numeric Character: Motor Weakness Aggravating: Nothing Alleviating: Spontanious Resolution Associated Signs and Symptoms: Positive: Loss of Consciousness, Seizure, Numbness Related Hx: Seizure - Additional Pertinent History Primary Care Physician: DACIA - Allergy/Home Medications Allergies/Adverse Reactions: Allergies Allergy/AdvReac Type Severity Reaction Status Date / Time No Known Allergies Allergy Verified 11/15/18 23:32 Home Medications: Home Medications Acetaminophen TAB* [Tylenol TAB*] 650 mg PO Q4H PRN 01/11/19 [History Confirmed 01/11/19] Atorvastatin* [Lipitor 40 MG*] 40 mg PO DAILY 01/11/19 [History Confirmed ] Cetirizine* [ZyrTEC 10 MG TAB*] 10 mg PO DAILY PRN 01/11/19 [History Confirmed 01/11/19] Pilocarpine 1% OPTH.DONELL* 1 drop BOTH EYES DAILY 01/11/19 [History Confirmed 07/27] PMH/Surg Hx/FS Hx/Imm Hx Endocrine/Hematology History: Reports: Hx Anticoagulant Therapy, Hx Anemia, Other Endocrine/Hematological Disorders - facial port wine staining Denies: Hx Diabetes, Hx Thyroid Disease Cardiovascular History: Reports: Hx Deep Vein Thrombosis, Hx Syncope Denies: Hx Hypertension, Hx Pacemaker/ICD Respiratory History: Reports: Hx Pulmonary Embolism, Other Respiratory Problems/ Disorders - 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, hx uterine cancer Denies: Hx Asthma, Hx Chronic Obstructive Pulmonary Disease (COPD) History: Denies: Hx Dialysis, Hx Renal Disease Musculoskeletal History: Reports: Hx Back Problems, Other Musculoskeletal History - left sided weakness Denies: Hx Osteoporosis Sensory History: Reports: Hx Glaucoma, Hx Vision Problem, Hx Hearing Problem Denies: Hx Contacts or Glasses, Hx Hearing Aid Opthamlomology History: Reports: Hx Glaucoma, Hx Vision Problem Denies: Hx Contacts or Glasses Neurological History: Reports: Hx Seizures, Other Neuro Impairments/Disorders - Sturge-Hughes disease Denies: Hx Dementia Psychiatric History: Reports: Hx Panic Disorder - UPSETS EASILY Denies: Hx Substance Abuse - Cancer History Cancer Type, Location and Year: uterine. [id number] Hx Chemotherapy: Yes - UTERINE CANCER Hx Radiation Therapy: Yes - UTERINE CANCER - Surgical History Surgery Procedure, Year, and Place: TOTAL HYSTERECTOMY. Right arm. Left knee. Qapital FILTER- 1.5T ONLY ( FOR MRI) Hx Anesthesia Reactions: No Infectious Disease History: No Infectious Disease History: Denies: Hx Clostridium Difficile, Hx Hepatitis, Hx Human Immunodeficiency Virus (HIV), Traveled Outside the [place] in Last 30 Days - Family History Known Family History: Negative: Cardiac Disease, Hypertension, Diabetes - Social History Alcohol Use: None Hx Substance Use: No Substance Use Type: Reports: None Hx Tobacco Use: No Smoking Status (MU): Never Smoked Tobacco Review of Systems Negative: Fever Neurological: Other - pos - seizure; shaking, numbness, heaviness, and tightness in left side. Positive: Syncope All Other Systems Reviewed And Are Negative: Yes Physical Exam - Summary Physical Exam Summary: Constitutional: Well-developed, Well-nourished, Alert. (-) Distressed Skin: Warm, Dry HENT: Normocephalic; Atraumatic Eyes: Conjunctiva normal Neck: Musculoskeletal ROM normal neck. (-) JVD, (-) Stridor, (-) Tracheal deviation Cardio: Rhythm regular, rate normal, Heart sounds normal; Intact distal pulses; The pedal pulses are 2+ and symmetric. Radial pulses are 2+ and symmetric. (-) Murmur Pulmonary/Chest wall: Effort normal. (-) Respiratory distress, (-) Wheezes, (-) Rales Abd: Soft, (-) tenderness, (-) Distension, (-) Guarding, (-) Rebound Musculoskeletal: (-) Edema Lymph: (-) Cervical adenopathy Neuro: Alert, Oriented x3, 4/5 strength in left upper and lower extremity, Cranial nerves II-XII are grossly intact. (-) Dysmetria, (-) Nystagmus, (-) Ataxia by finger to nose testing, (-) Sensory deficit. Psych: Mood and affect Normal Triage Information Reviewed: Yes Vital Signs On Initial Exam: Initial Vitals Temp Pulse Resp BP Pulse Ox 98.8 F 84 16 116/81 96 01/11/19 11:14 01/11/19 11:14 01/11/19 11:14 01/11/19 11:14 01/11/19 11:14 Vital Signs Reviewed: Yes Diagnostics - Vital Signs Vital Signs Temp Pulse Resp BP Pulse Ox 01/11/19 11:14 98.8 F 84 16 116/81 96 - Laboratory Result Diagrams: 01/11/19 12:52 01/11/19 12:52 Lab Statement: Any lab studies that have been ordered have been reviewed, and results considered in the medical decision making process. Re-Evaluation - Re-Evaluation First Eval Re-Evaluation Time: 13:31 Comment: Pt is moving left arm at baseline. Course/Dx - Course Course Of Treatment: Patient is here with a grand mal seizure. Patient has a seizure disorder and was initially postictal per EMS but improved with time she got here. Patient has left-sided weakness at baseline which gets worse and she has a seizure. This is confirmed in chart review. Patient's weakness improved as she sat here. Patient had basic lower performed which showed no abnormality. Patient is encouraged to f/u with Dr. Crockett. - Diagnoses Provider Diagnoses: Seizure, Epilepsy Discharge ED - Sign-Out/Discharge Documenting (check all that apply): Patient Departure - Discharge Patient Received Moderate/Deep Sedation with Procedure: No - Discharge Plan Condition: Stable Disposition: HOME Patient Education Materials: Epilepsy (ED) Referrals: Piter Thomas MD [Primary Care Provider] - Bebeto Crockett MD [Medical Doctor] - As Soon As Possible Additional Instructions: Follow up with Dr Crockett as soon as possible, continue medication. Please do not drive or operate heavy machinery. PLEASE RETURN TO EMERGENCY DEPARTMENT FOR ANY NEW OR WORSENING SYMPTOMS. - Billing Disposition and Condition Condition: STABLE Disposition: Home - Attestation Statements Document Initiated by Jaun: Yes Documenting Scribe: Cindy Mccoy Provider For Whom Jaun is Documenting (Include Credential): Jorge Quevedo MD Scribe Attestation: Cindy Morgan, scribed for Jorge Quevedo MD on 01/11/19 at 1705. Scribe Documentation Reviewed: Yes Provider Attestation: The documentation as recorded by the Cindy smiley accurately reflects the service I personally performed and the decisions made by , Jorge Quevedo MD Status of Scribe Document: Viewed
[2019-01-11 13:16] LABS: Albumin 4.2 g/dL (3.2-5.2); Calcium 9.1 mg/dL (8.6-10.3); Potassium 4.1 mmol/L (3.5-5.0); Total Bilirubin 0.3 mg/dL (0.2-1.0)
[2019-01-11 13:20] LABS: ABS Lymphocytes 0.5 10^3/ul (1.0-4.8); ABS Monocytes 0.4 10^3/ul (0-0.8); ABS Neutrophils 2.5 10^3/ul (1.5-7.7); Eosinophil % 0.9 %; Hematocrit 38 % (35-47); Mean Corpuscular HGB Conc 34 g/dL (31-36); Mean Corpuscular Hemoglobin 33 pg (27-31); Mean Corpuscular Volume 99 fL (80-97); Mean Platelet Volume 8.3 fL (7.4-10.4); Platelet Count 210 10^3/uL (150-450); Red Cell Distribution Width 16 % (10-15); White Blood Count 3.5 10^3/uL (3.5-10.8)
[2019-01-11 13:22] LABS: Albumin/Globulin Ratio 1.6 (1-3); BUN/Creatinine Ratio 23.6 (8-20); EGFR African American 134.6 (>60); EGFR Non-African American 111.3 (>60); Globulin 2.7 g/dL (2-4); Total Protein 6.9 g/dL (6.4-8.9)
[2019-01-11 13:57] VITALS: BP 114/73
== END 2019-01-11 13:56 | disposition home or self-care (01) ==
LOC: ED 10:45
DX: G40.409 Other generalized epilepsy and epileptic syndromes, not intractable, without status epilepticus (principal); R55 Syncope and collapse; Z86.718 Personal history of other venous thrombosis and embolism; Z86.711 Personal history of pulmonary embolism; Z79.01 Long term (current) use of anticoagulants; Z85.42 Personal history of malignant neoplasm of other parts of uterus
CPT/HCPCS: 36415; 80053; 85025; 96374; 99283; J1642